=== PATIENT | female | born 1955 | race Caucasian/White ===

== ENCOUNTER → 2018-01-06 09:22 | Outpatient (CLI) | payer MEDICAID, SELFPAY ==
[2018-01-07 09:19] LABS: Vitamin B12 611 pg/mL (232-1245)
== END ==
PROVIDERS: PCP Internal Medicine Adolescent Medicine; Visit Provider Nurse Practitioner Family
DX: R20.2 Paresthesia of skin (principal)
CPT/HCPCS: 36415; 82607; 86592

== ENCOUNTER → 2018-01-07 12:25 | Outpatient (CLI) | payer MEDICAID, SELFPAY ==
--- NOTE | 2018-01-07 | CA_ITS ---
PROCEDURE: 2-D M-mode and color Doppler study INDICATIONS FOR THE TEST: Chest pain COPD Heart Murmur Tobacco Smoking Palpitations Fatigue Syncope Edemax HypertensionxDiabetes Mellitus Rheumatic Fever SOBxDOE Obesity Hyperlipidemia Family History HD Additional History PATIENT INFORMATION HEIGHT: 5'7'' WEIGHT: 204 GENDER: Female B/P: 177/84 2-D/M-MODE INTERPRETATION: 2-D MEASUREMENTS OBSERVED VALUES IN CMS Right Ventricular Dimension (RVDd) 2.1 Interventricular Septum (Thickness)(IVsd) 0.9 Left Ventricular Internal Dimensions(LVIDd) 3.8 Left Ventricular Posterior Wall (Thickness)(LVPWd) 1.0 Aortic Root 2.6 Aortic Cusp Separation 1.5 Left Atrial Dimensions (LAD) 3.2 2D 1. Left atrium is qualitatively mildly enlarged, left ventricle is normal size, left ventricle wall thickness is upper limit of the normal, there is preserved left ventricular systolic function, visually estimated ejection fraction 55% with no obvious regional wall motion abnormality. 2. The right atrium and right ventricle are qualitatively mildly enlarged with normal contractility. 3. The aortic valve is minimally thickened and fibrosed. 4. The mitral and tricuspid valve are grossly normal. 5. The pulmonic valve is poorly visualized. 6. No significant pericardial effusion noted. DOPPLER INTERROGATION: Doppler interrogation of the aortic, mitral and tricuspid valvular presence of mild mitral and tricuspid regurgitation, calculated right ventricular systolic pressure is 41 mmHg consistent with moderate pulmonary hypertension, grade 1 diastolic dysfunction seen with tissue Doppler evidence of raised left atrial pressure. CONCLUSION: 1. Mild biatrial enlargement, normal left ventricular size, visually estimated ejection fraction 55% with no obvious regional wall motion abnormality, grade 1 diastolic dysfunction seen with tissue Doppler evidence of raised left atrial pressure. 2. Mildly enlarged right ventricle with normal contractility. 3. Mild mitral and tricuspid regurgitation, calculated right ventricular systolic pressure is 41 mmHg consistent with mild pulmonary hypertension. 4. No significant pericardial effusion noted.
--- NOTE | 2018-01-07 | CI_ITS ---
Cerebrovascular Exam IMPRESSIONS 1. The bilateral internal carotid arteries reveal no evidence of plaque or stenosis. 2. The bilateral common and external carotid arteries reveal no significant stenosis. 3. The bilateral vertebral arteries are patent with normal antegrade flow. 4. The bilateral subclavian arteries reveal no evidence of significant stenosis. Carotid duplex study. Complete study and Doppler flow study including spectral analysis, color and leach scale imaging. Height: Height: 170.2cm. Height: 67in. Weight: Weight: 92.5kg. Weight: 203.6lb. Body mass index: BMI: 32kg/m^2. Body surface area: BSA: 2.12m^2. Location: Vascular laboratory. Patient status: Outpatient. Findings: Right internal carotid: Calcific plaque. Left internal carotid: Calcific plaque. Tables: Arterial flow: + +--------+--------+ Location V sys V ed + +--------+--------+ Right CCA - proximal 66cm/s 17.3cm/s + +--------+--------+ Right CCA - distal 53.5cm/s 14.9cm/s + +--------+--------+ Right ECA 61.8cm/s 8.8cm/s + +--------+--------+ Right ICA - proximal 49.6cm/s 18.2cm/s + +--------+--------+ Right ICA - mid 89.9cm/s 27.6cm/s + +--------+--------+ Right ICA - distal 93.7cm/s 24.3cm/s + +--------+--------+ Right vertebral 66.2cm/s 22.1cm/s + +--------+--------+ Left CCA - proximal 80.5cm/s 18.9cm/s + +--------+--------+ Left CCA - distal 64.7cm/s 12.6cm/s + +--------+--------+ Left ECA 74.2cm/s 6.3cm/s + +--------+--------+ Left ICA - proximal 53.3cm/s 17.5cm/s + +--------+--------+ Left ICA - mid 86.9cm/s 32.9cm/s + +--------+--------+ Left ICA - distal 97.2cm/s 30cm/s + +--------+--------+ Left vertebral 34.6cm/s 9.4cm/s + +--------+--------+ Velocity ratios: + + + + + + Right, V sys Right, V ed Left, V sys Left, V ed + + + + + + Max ICA/dist CCA 1.75 1.85 1.5 2.61 + + + + + + (Report amended ) Electronically signed by: Shahid Goldman [id number]
== END ==
PROVIDERS: Family Provider Internal Medicine Adolescent Medicine; PCP Internal Medicine Adolescent Medicine; Visit Provider Internal Medicine Adolescent Medicine
DX: R55 Syncope and collapse (principal); R60.9 Edema, unspecified
CPT/HCPCS: 93306; 93880

== ENCOUNTER → 2018-01-13 07:27 | Outpatient (CLI) | payer MEDICAID, SELFPAY ==
[2018-01-14 20:02] LABS: Treponema pallidum Ab (FTA-ABS Reactive (Non Reactive)
== END ==
PROVIDERS: PCP Internal Medicine Adolescent Medicine; Visit Provider Nurse Practitioner Family
DX: A53.0 Latent syphilis, unspecified as early or late (principal)
CPT/HCPCS: 36415; 86780

== ENCOUNTER 2018-01-13 09:00 | Outpatient (RCR) | payer MEDICAID, SELFPAY ==
--- NOTE | 2017-12-02 13:57 | HMH.PTOPWND ---
Rehab Outpt Wound Evaluation Rehab OP Wound Evaluation Start: 12/02/17 13:50 Freq: Status: Active Protocol: Document 12/02/17 13:50 PHOKRISTINE (Rec: 12/02/17 13:56 PHORNE [id number]) Electronically Signed By Mick Oakes, PT 12/02/17 13:50 Subjective/History History History Pt is 62 yowf who presents with 3-4 mo hx of lia LE edema with insidious onset of symptoms. Pt is a poor historian, but she reports not having these symptoms previously. She c/o pain throughout lia lower legs and feelings of tingling/numbness intermittently. PMH of HTN and possibly Hypothyroid. She is unsure of the rest of her medical hx, but has had 2 C- sections, possible CCY, and possible cancer removal of unknown type. Lymphedema Eval Classification of Lymphedema Secondary Lymphedema Yes: CVI Stemmer's sign Stemmer's Sign no Stage of Lymphedema Lymphedema stages Stage I (Pitting edema, reduces w/ elevation, no fibrosis) Skin Changes Discoloration of Skin Yes Other Changes Yes: Telangiectasis Pain Scale Pain Scale (0-10) 7 Affected Extremities Areas Affected by Lymphedema/Edema Right Lower Extremity Left Lower Extremity Manual Lymphatic Drainage Treatment Area MLD Treatment Area Right Lower Extremity Left Lower Extremity Wound Problems/Impairments Impairments Problems/Impairmments Palpation Tenderness Increased Edema Lymphedema Present Subjective C/O Pain Impaired Self Care/Self Management Prognosis Rehab Potential Good Clinical Impression Consistent with Diagnosis Yes Short Term Goals Number of Weeks 4 Decreased Palpation Tenderness Yes: to min Decrease Subjective C/O Pain Yes: 5/10 Patient to Understand Lymphedema Yes Treatment and Exercises Decrease Girth Measurments by (cm) Yes: by 5 cm Outreach Associate Goals Number of Weeks 8 Decreased Palpation Tenderness Yes: to none Decrease Subjective C/O Pain Yes: 3/10 Patient to be Ind w/ HEP Yes Patient to Adhere Lymphedema Precautions Yes Decrease Girth Measurments by (cm)
== END 2018-01-13 09:01 | disposition home or self-care (01) ==
LOC: PT 09:00
PROVIDERS: Family Provider Internal Medicine Adolescent Medicine; PCP Internal Medicine Adolescent Medicine; Visit Provider Internal Medicine Adolescent Medicine
DX: R60.9 Edema, unspecified (principal); I89.0 Lymphedema, not elsewhere classified
CPT/HCPCS: 97140; 97162; 97760

== ENCOUNTER → 2018-09-27 09:58 | Outpatient (CLI) | payer MEDICAID, SELFPAY ==
[2018-09-27 14:08] LABS: Alanine Aminotransferase 31 U/L (12-78); Albumin Level 3.7 gm/dL (3.4-5.0); Albumin/Globulin Ratio 1.1 (1.1-1.8); Alkaline Phosphatase 96 U/L (46-116); Anion Gap 12.7 mEq/L (5-15); Aspartate Amino Transferase 18 U/L (15-37); Bilirubin,Total 0.9 mg/dL (0.2-1.0); Blood Urea Nitrogen 12 mg/dL (7-18); Calcium 8.6 mg/dL (8.5-10.1); Carbon Dioxide 30 mmol/L (21.0-32.0); Chloride 102 mmol/L (98-107); Creatinine,Serum 0.78 mg/dL (0.55-1.02); Estimated Glomerular Filt Rate 75 ml/min (>60); GFR (African American) 91 ML/MIN (>60); Globulin 3.5 gm/dl (1.3-3.2); Glucose 108 mg/dL (74-106); Potassium 3.7 mmoL/L (3.5-5.1); Sodium 141 mmol/L (136-145); Total Protein,Serum 7.2 gm/dL (6.4-8.2)
[2018-09-29 06:16] LABS: Treponema pallidum Ab (FTA-ABS Reactive (Non Reactive)
== END ==
PROVIDERS: PCP Internal Medicine Adolescent Medicine; Visit Provider Internal Medicine Adolescent Medicine
DX: A53.9 Syphilis, unspecified (principal); I10 Essential (primary) hypertension
CPT/HCPCS: 36415; 80053; 86592; 86780

== ENCOUNTER → 2019-03-23 07:19 | Outpatient (CLI) | payer OTHER, SELFPAY ==
[2019-03-23 15:06] LABS: Alanine Aminotransferase 22 U/L (12-78); Albumin Level 3.4 gm/dL (3.4-5.0); Alkaline Phosphatase 101 U/L (46-116); Anion Gap 11.4 mEq/L (5-15); Aspartate Amino Transferase 20 U/L (15-37); Bilirubin,Total 0.9 mg/dL (0.2-1.0); Blood Urea Nitrogen 9 mg/dL (7-18); Calcium 8.9 mg/dL (8.5-10.1); Carbon Dioxide 32 mmol/L (21.0-32.0); Chloride 103 mmol/L (98-107); Chol/HDL Ratio 2.6 (1-3.5); Cholesterol 155 mg/dL (140-200); Creatinine,Serum 0.73 mg/dL (0.55-1.02); Estimated Glomerular Filt Rate 81 ml/min (>60); GFR (African American) 98 ML/MIN (>60); Globulin 3.3 gm/dl (1.3-3.2); Glucose 110 mg/dL (74-106); HDL Cholesterol 59 mg/dL (29-89); LDL Cholesterol 85 mg/dL (0-130); Potassium 3.4 mmoL/L (3.5-5.1); Sodium 143 mmol/L (136-145); Thyroid Stimulating Hormone 3.46 uIU/ml (0.358-3.740); Total Protein,Serum 6.7 gm/dL (6.4-8.2); Triglycerides 54 mg/dL (30-200); VLDL Cholesterol 11 mg/dL (0-40)
== END ==
PROVIDERS: PCP Internal Medicine Adolescent Medicine; Visit Provider Internal Medicine Adolescent Medicine
DX: E78.2 Mixed hyperlipidemia (principal); E03.9 Hypothyroidism, unspecified; I10 Essential (primary) hypertension; A53.0 Latent syphilis, unspecified as early or late
CPT/HCPCS: 36415; 80053; 80061; 84443; 86592

== ENCOUNTER 2019-10-29 08:42 | Emergency (ER) | payer OTHER, SELFPAY ==
[2019-10-29 08:42] VITALS: BP 164/85; PULSE 59; RESP 20; TEMP 36.8; O2SAT 95; BMI 33.5
--- NOTE | 2019-10-29 10:13 | HMH.EDEXTP ---
ED Disposition Clinical Impression: Cellulitis Disposition: Home, Self-Care Condition on Discharge: Good Instructions: Cellulitis Prescriptions: clindamycin HCL [Clindamycin HCl 300mg Cap] 300 mg PO Q6 10 Days #40 cap Transmission Status: Sent to [facility] Referrals: Jer Martinez MD [Primary Care Provider] - - Critical Care Critical Care Time: No Attestation: On 10/29/19, the high probability of a clinically significant, sudden or life threatening deterioration of the following system(s) required my full and direct attention, intervention and personal management. The time I documented below is in addition to time spent performing reported procedures but includes the following listed in this critical care notation. Medical Decision Making - Medical Records Medical records reviewed: Yes: I reviewed the patient's medical records. - Scooter Inquiry Pt receiving controlled substance: No Vital Signs: 10/29/19 08:42 Temperature 98.2 F Temperature Source Oral Pulse Rate [Right Radial] 59 L Respiratory Rate 20 Blood Pressure [Right Arm] 164/85 H Blood Pressure Mean [Right Arm] 111 Blood Pressure Source [Right Arm] Automatic Cuff Blood Pressure Position [Right Arm] Sitting 02 Sat by Pulse Oximetry 95 Oxygen Delivery Method Room Air Medical Decision Narrative: I did talk to the patient in depth about wearing compression stockings but she absolutely refused. Extremity Problem HPI - General Chief complaint: Extremity Injury, Lower Stated complaint: legs swollen and leaking Time Seen by Provider: 10/29/19 10:14 Mode of Arrival: Ambulatory Source of Information: Patient Limitations: No Limitations Description of Symptoms (Recalled from ER Triage Doc. by RN): Pt walked into ED c/o of R leg leaking, since Dr. Hopkins took off right toenail. Pt c/o they are edematous, although non pitting. Denies soa, cough chest pain or any pain. Pt states she only sees Dr. Martinez when she has. - History of Present Illness HPI Narrative: 64-year-old female presents the ED with bilateral leg swelling and also an area on the leg that is presently weeping mild erythema around the lesion on her right lower extremity however looks like early onset cellulitis patient denies any recent fever shakes or chills. Patient denies any nausea vomiting diarrhea. Patient denies any other acute symptoms. - Related Data Home Medications Medication Instructions Recorded Confirmed Furosemide [Furosemide 40MG tAB] 1 tab PO DAILY 12/28/17 08/03/19 Potassium Chloride [Micro-K 10mEq 10 meq PO DAILY 12/28/17 08/03/19 cap] atenoloL [Atenolol 50mg Tab] 1 tab PO BID 12/28/17 08/03/19 atorvastatin 40 mg tablet 40 mg PO DAILY 90 Days tab 01/21/18 08/03/19 Naproxen 500 mg PO BID 05/16/18 08/03/19 raNITIdine HCL [Ranitidine HCl] 150 mg PO BID 05/16/18 08/03/19 hydrochlorothiazide 12.5 mg capsule 12.5 mg PO DAILY 03/31/19 08/03/19 famotidine 20 mg tablet 20 mg PO QHS tab 06/08/19 08/03/19 losartan 100 mg tablet 100 mg PO tab 06/08/19 08/03/19 ranitidine HCl 300 mg tablet 300 mg PO DAILY tab 06/08/19 08/03/19 levothyroxine 75 mcg tablet 75 mcg PO tab 07/06/19 08/03/19 Previous Rx's Medication Instructions Recorded Bacitracin 1 applicatio TOPICAL TID 10 Days 01/16/19 #1 tube Clotrimazole/Betamethasone Dip 1 applicatio TP BID 30 Days #1 tube 03/07/19 [Lotrisone Cream] clindamycin HCL [Clindamycin HCl 300 mg PO Q6 10 Days #40 cap 10/29/19 300mg Cap] Allergies Allergy/AdvReac Type Severity Reaction Status Date / Time Penicillins Allergy Unknown I-HIVES Verified 08/03/19 08:08 Influenza Virus Vaccines Allergy swelling, Verified 08/03/19 08:08 rash [facility] History - Hepatitis A Screen Drug use history?: No High risk sexual behaviors?: No History of sexually transmitted infection?: No Currently employed?: No Childcare worker?: No Do you have indoor plumbing?: Yes Do you have electricity?:
[2019-10-29 10:25] VITALS: BP 135/75; PULSE 59; RESP 16; TEMP 36.6; O2SAT 98
== END 2019-10-29 10:27 | disposition home or self-care (01) ==
PROVIDERS: Emergency Provider Family Medicine; PCP Internal Medicine Adolescent Medicine
DX: L03.116 Cellulitis of left lower limb (principal); I10 Essential (primary) hypertension; E78.5 Hyperlipidemia, unspecified; E03.9 Hypothyroidism, unspecified; Z88.0 Allergy status to penicillin; Z88.7 Allergy status to serum and vaccine; Z90.79 Acquired absence of other genital organ(s); Z90.49 Acquired absence of other specified parts of digestive tract
CPT/HCPCS: 99281

== ENCOUNTER → 2020-01-10 12:43 | Outpatient (CLI) | payer OTHER, SELFPAY ==
--- NOTE | 2020-01-10 12:52 | XR_ITS ---
PROCEDURE: XR SHOULDER RT MIN 2V CLINICAL INDICATION: RT SHOULDER PAIN COMPARISON: No exams were available for comparison FINDINGS: No fracture or dislocation. No lytic or blastic change. There is normal mineralization. The joint spaces are well-preserved. No significant degenerative/arthritic changes. No erosive changes evident. Other findings:None. IMPRESSION: No acute findings. Dictated by: Shahid Goldman MD 01/10/2020 13:38 Shahid Goldman MD in [place] 01/10/2020 13:38
--- NOTE | 2020-01-10 12:52 | XR_ITS ---
PROCEDURE: XR THORACIC SPINE 3V CLINICAL INDICATION: THORACIC PAIN COMPARISON: No exams were available for comparison FINDINGS: There is mild thoracolumbar scoliosis convex right. Multilevel degenerative disc disease is present in the mid lower thoracic spine and at the thoracolumbar junction with multilevel small osteophytes noted . No acute fracture or dislocation. No lytic or blastic change. Other findings:None. IMPRESSION: Thoracic spondylosis with scoliosis Dictated by: Shahid Goldman MD 01/10/2020 13:38 Shahid Goldman MD in [facility] 01/10/2020 13:38
== END ==
PROVIDERS: PCP Internal Medicine Adolescent Medicine; Visit Provider Internal Medicine Adolescent Medicine
DX: M54.6 Pain in thoracic spine (principal); M25.511 Pain in right shoulder
CPT/HCPCS: 72072; 73030

== ENCOUNTER → 2020-01-24 10:03 | Outpatient (CLI) | payer OTHER, SELFPAY ==
[2020-01-24 14:32] LABS: Basophils # 0.1 K/mm3 (0-0.2); Basophils % 0.5 % (0.1-2.0); Eosinophils # 0.2 K/mm3 (0.0-0.4); Eosinophils % 1.7 % (0.1-12.0); Hematocrit 39.3 % (37.0-47.0); Hemoglobin 14.4 g/dL (12.2-16.2); Lymphocytes # 1.9 K/mm3 (0.7-4.5); Lymphocytes % 20.8 % (10-50); Mean Corpuscular HGB Conc 36.5 g/dL (31.8-35.4); Mean Corpuscular Hemoglobin 30.6 pg (27.0-31.2); Mean Corpuscular Volume 83.9 fl (81-99); Mean Platelet Volume 8.3 fl (7.4-10.4); Monocytes # 0.4 K/mm3 (0.1-1.0); Monocytes % 4.3 % (1.7-9.3); Neutrophils # 6.5 K/mm3 (1.8-7.8); Neutrophils % 72.6 % (37.0-80.0); Platelet Count 415 K/mm3 (142-424); Red Blood Count 4.69 M/mm3 (4.20-5.40); Red Cell Distribution Width 14.3 % (11.5-17.5); White Blood Count 8.9 K/mm3 (4.8-10.8)
[2020-01-24 14:35] LABS: Chloride 93 mmol/L (98-107)
[2020-01-24 14:36] LABS: Potassium 3.2 mmoL/L (3.5-5.1); Sodium 139 mmol/L (136-145)
[2020-01-24 14:38] LABS: Alanine Aminotransferase 22 U/L (12-78); Albumin Level 3.6 g/dl (3.5-5.0); Albumin/Globulin Ratio 1.1 (1.1-1.8); Alkaline Phosphatase 112 U/L (38-126); Anion Gap 10.2 mEq/L (5-15); Aspartate Amino Transferase 31 U/L (14-36); Bilirubin,Total 1.2 mg/dl (0.2-1.3); Blood Urea Nitrogen 18 mg/dl (7-17); Carbon Dioxide 39 mmol/L (22.0-30.0); Cholesterol 162 mg/dl (140-200); Estimated Glomerular Filt Rate 50 ml/min (>60); GFR (African American) 61 ML/MIN (>60); Globulin 3.3 g/dL (1.3-3.2); Total Protein,Serum 6.9 g/dl (6.3-8.2); Triglycerides 115 mg/dl (30-150); VLDL Cholesterol 23 mg/dL (0-40)
[2020-01-24 14:39] LABS: Calcium 9.5 mg/dl (8.4-10.2); Chol/HDL Ratio 3.8 (1-3.5); Glucose 138 mg/dl (74-100); HDL Cholesterol 43 mg/dl (40-60)
[2020-01-24 14:50] LABS: Direct LDL Cholesterol 97.29 mg/dL (100-129)
[2020-01-24 15:09] LABS: Thyroid Stimulating Hormone 3.09 uIU/mL (0.465-4.68)
[2020-01-24 15:57] LABS: 25-OH Vitamin D, Total 25.8 ng/mL (30-100)
== END ==
PROVIDERS: Visit Provider Internal Medicine Adolescent Medicine
DX: E78.2 Mixed hyperlipidemia (principal); E55.9 Vitamin D deficiency, unspecified; E03.9 Hypothyroidism, unspecified
CPT/HCPCS: 36415; 80053; 80061; 82306; 84443; 85025

== ENCOUNTER 2020-02-08 08:00 | Outpatient (RCR) | payer OTHER, SELFPAY ==
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
== END 2020-02-08 10:20 | disposition home or self-care (01) ==
LOC: PT.CARL 08:00
PROVIDERS: PCP Internal Medicine Adolescent Medicine; Visit Provider Internal Medicine Adolescent Medicine
DX: M25.511 Pain in right shoulder (principal)
CPT/HCPCS: 97010; 97014; 97110; 97163; G0283

== ENCOUNTER 2020-06-30 10:25 | Emergency (ER) | payer OTHER, SELFPAY ==
[2020-06-30 10:25] VITALS: BP 134/86; PULSE 56; RESP 21; TEMP 36.6; O2SAT 95; BMI 34.2
--- NOTE | 2020-06-30 10:48 | HMH.EDUTC ---
[facility] [place] Disposition Clinical Impression: Yeast dermatitis Disposition: Home, Self-Care Condition on Discharge: Good Instructions: DI for Christiane Diaper Rash, Yeast Infection-Skin, Nystatin Topical Additional Instructions: Make sure to wash area Keep the skin clean. Ask your healthcare provider if you should wash with mild soap and water. Do not use soap that contains alcohol. Alcohol can dry and irritate the skin and make symptoms worse Keep the skin dry. Pat the area dry with a towel. Do not rub, because this may irritate the skin. If you have a skin yeast infection between skin folds, lift the top part gently and hold it while you dry between your skin folds.Dry your skin if you are sweating from exercise or exposure to heat. Use a clean towel each time to prevent spreading or continuing the infection. Keep the skin protected.. Check your skin each day to make sure you do not have new or worsening problems. You may need to have someone check the skin if you cannot see the area easily. Using a cotton pillow case between the skin folds from your abdomen to groin area will help to keep skin from touching skin and help with healing Use powder as prescribed Follow up with your Family Doctor as scheduled Return if needed Straight to ER if any life threatening symptoms Prescriptions: Fluconazole [Diflucan 150mg tab] 150 mg PO ONCE #1 tab Transmission Status: Sent to [facility] Nystatin [Nystatin Topical Powder 30GM*] 1 applicatio TP TID #1 bot Transmission Status: Sent to [facility] Referrals: Jer Martinez MD [Primary Care Provider] - As needed Time of Disposition: 11:06 Medical Decision Making - Scooter Inquiry Pt receiving controlled substance: No Scooter was queried for this patient: No Vital Signs: 06/30/20 10:25 06/30/20 11:03 Temperature 97.8 F 97.8 F Temperature Source Oral Pulse Rate 56 L Pulse Rate [Left Brachial] 56 L Respiratory Rate 21 21 Blood Pressure 134/86 Blood Pressure [Left Arm] 134/86 Blood Pressure Mean [Left Arm] 102 Blood Pressure Source [Left Arm] Automatic Cuff Blood Pressure Position [Left Arm] Sitting 02 Sat by Pulse Oximetry 95 Oxygen Delivery Method Room Air Medical Decision Narrative: Patient educated to clean area well with mild soap and water apply powder and placement of pillow case between skin folds may help with sweating and healing of rash Patient verbalized understanding [facility] [place] HPI - General Stated complaint: broke out on lower abd Time Seen by Provider: 06/30/20 10:48 Mode of Arrival: Ambulatory Source of Information: Patient Limitations: No Limitations Description of Symptoms (Recalled from Triage Doc. by RN): PATIENT C/O RASH TO BILATERAL GROIN, LOWER ABDOMINAL FOLD AND GLUTEAL FOLD X APPROX 1 MONTH HEENT Symptoms (Recalled from RN notes): No Resp Symptoms (Recalled from RN notes): No Skin Symptoms (Recalled from RN notes): Yes MS Symptoms (Recalled from RN notes): No Functional Status (Recalled from RN notes): WNL - History of Present Illness Provider Complaint: Patient state that she has been having red itchy rash on her lower abdomen between skin folds and in groin area like she has had before with yeast States that she is also having rash between her buttcheeks that is itchy and burning and red like she has in her groin area States that she has had this before and got some medication and it cleared up States that it has continued to get worse over the last month - Related Data Home Medications Medication Instructions Recorded Confirmed Furosemide [Furosemide 40MG tAB*] 1 tab PO DAILY 12/28/17 05/09/20 Potassium Chloride [Micro-K 10mEq 10 meq PO DAILY 12/28/17 05/09/20 cap] atenoloL [Atenolol 50mg Tab] 1 tab PO BID 12/28/17 05/09/20 atorvastatin 40 mg tablet 40 mg PO DAILY 90 Days tab 01/21/18 05/09/20 Naproxen 500 mg PO BID 05/16/18 05/09/20 hydrochlorothiazide 12.5 mg capsule 12.5 mg PO DAILY 03/31/19 05/09/20 famotidine 2
[2020-06-30 11:03] VITALS: BP 134/86; PULSE 56; RESP 21; TEMP 36.6; O2SAT 95
== END 2020-06-30 11:10 | disposition home or self-care (01) ==
PROVIDERS: Emergency Provider Nurse Practitioner; PCP Internal Medicine Adolescent Medicine
DX: B37.2 Candidiasis of skin and nail (principal); E78.5 Hyperlipidemia, unspecified; I10 Essential (primary) hypertension; E03.9 Hypothyroidism, unspecified; Z88.0 Allergy status to penicillin; Z88.7 Allergy status to serum and vaccine; Z90.79 Acquired absence of other genital organ(s); Z90.49 Acquired absence of other specified parts of digestive tract; Z79.899 Other long term (current) drug therapy
CPT/HCPCS: 99202; G0463

== ENCOUNTER → 2020-07-11 07:45 | Outpatient (CLI) | payer OTHER, SELFPAY ==
[2020-07-11 13:56] LABS: Chloride 95 mmol/L (98-107); Sodium 140 mmol/L (136-145)
[2020-07-11 13:58] LABS: Blood Urea Nitrogen 29 mg/dl (7-17); Estimated Glomerular Filt Rate 45 ml/min (>60); GFR (African American) 55 ML/MIN (>60); Potassium 2.9 mmoL/L (3.5-5.1)
[2020-07-11 13:59] LABS: Alanine Aminotransferase 20 U/L (12-78); Albumin Level 3.8 g/dl (3.5-5.0); Albumin/Globulin Ratio 1.1 (1.1-1.8); Alkaline Phosphatase 102 U/L (38-126); Anion Gap 8.9 mEq/L (5-15); Aspartate Amino Transferase 29 U/L (14-36); Calcium 9.4 mg/dl (8.4-10.2); Carbon Dioxide 39 mmol/L (22.0-30.0); Chol/HDL Ratio 4.1 (1-3.5); Cholesterol 178 mg/dl (140-200); Globulin 3.4 g/dL (1.3-3.2); Glucose 138 mg/dl (74-100); HDL Cholesterol 43 mg/dl (40-60); Total Protein,Serum 7.2 g/dl (6.3-8.2); Triglycerides 121 mg/dl (30-150); VLDL Cholesterol 24 mg/dL (0-40)
[2020-07-11 14:11] LABS: Direct LDL Cholesterol 100.85 mg/dL (100-129)
[2020-07-11 14:15] LABS: Basophils # 0.1 K/mm3 (0-0.2); Basophils % 0.9 % (0.1-2.0); Eosinophils # 0.2 K/mm3 (0.0-0.4); Eosinophils % 3.7 % (0.1-12.0); Hematocrit 39.1 % (37.0-47.0); Hemoglobin 13.5 g/dL (12.2-16.2); Lymphocytes # 1.6 K/mm3 (0.7-4.5); Lymphocytes % 23.9 % (10-50); Mean Corpuscular HGB Conc 34.6 g/dL (31.8-35.4); Mean Corpuscular Hemoglobin 28.9 pg (27.0-31.2); Mean Corpuscular Volume 83.8 fl (81-99); Mean Platelet Volume 8.9 fl (7.4-10.4); Monocytes # 0.3 K/mm3 (0.1-1.0); Monocytes % 4.9 % (1.7-9.3); Neutrophils # 4.4 K/mm3 (1.8-7.8); Neutrophils % 66.5 % (37.0-80.0); Platelet Count 328 K/mm3 (142-424); Red Blood Count 4.67 M/mm3 (4.20-5.40); Red Cell Distribution Width 14.3 % (11.5-17.5); White Blood Count 6.5 K/mm3 (4.8-10.8)
[2020-07-11 14:17] LABS: 25-OH Vitamin D, Total 22.4 ng/mL (30-100)
== END ==
PROVIDERS: Visit Provider Internal Medicine Adolescent Medicine
DX: E78.2 Mixed hyperlipidemia (principal); E55.9 Vitamin D deficiency, unspecified
CPT/HCPCS: 36415; 80053; 80061; 82306; 85025

== ENCOUNTER → 2020-07-24 12:00 | Outpatient (CLI) | payer OTHER, SELFPAY ==
[2020-07-24 14:51] LABS: Chloride 103 mmol/L (98-107); Potassium 4.4 mmoL/L (3.5-5.1); Sodium 140 mmol/L (136-145)
[2020-07-24 14:54] LABS: Anion Gap 10.4 mEq/L (5-15); Blood Urea Nitrogen 27 mg/dl (7-17); Calcium 9.6 mg/dl (8.4-10.2); Carbon Dioxide 31 mmol/L (22.0-30.0); Estimated Glomerular Filt Rate 56 ml/min (>60); GFR (African American) 68 ML/MIN (>60); Glucose 113 mg/dl (74-100)
== END ==
PROVIDERS: Visit Provider Internal Medicine Adolescent Medicine
DX: E87.6 Hypokalemia (principal)
CPT/HCPCS: 36415; 80048

== ENCOUNTER → 2020-10-29 06:51 | Outpatient (CLI) | payer OTHER, SELFPAY ==
[2020-10-29 13:57] LABS: Chloride 98 mmol/L (98-107); Potassium 3.8 mmoL/L (3.5-5.1); Sodium 139 mmol/L (136-145)
[2020-10-29 13:59] LABS: Blood Urea Nitrogen 20 mg/dl (7-17); Estimated Glomerular Filt Rate 50 ml/min (>60); GFR (African American) 61 ML/MIN (>60)
[2020-10-29 14:00] LABS: Alanine Aminotransferase 15 U/L (12-78); Albumin Level 3.6 g/dl (3.5-5.0); Albumin/Globulin Ratio 1.1 (1.1-1.8); Alkaline Phosphatase 97 U/L (38-126); Anion Gap 10.8 mEq/L (5-15); Aspartate Amino Transferase 24 U/L (14-36); Bilirubin,Total 0.8 mg/dl (0.2-1.3); Calcium 8.9 mg/dl (8.4-10.2); Carbon Dioxide 34 mmol/L (22.0-30.0); Globulin 3.2 g/dL (1.3-3.2); Glucose 139 mg/dl (74-100); Magnesium 1.7 mg/dl (1.6-2.3); Total Protein,Serum 6.8 g/dl (6.3-8.2)
[2020-10-29 14:05] LABS: Basophils % 0.4 % (0.1-2.0); Eosinophils # 0.2 K/mm3 (0.0-0.4); Eosinophils % 3.3 % (0.1-12.0); Hematocrit 37.4 % (37.0-47.0); Hemoglobin 13.2 g/dL (12.2-16.2); Lymphocytes # 1.7 K/mm3 (0.7-4.5); Lymphocytes % 23.5 % (10-50); Mean Corpuscular HGB Conc 35.3 g/dL (31.8-35.4); Mean Corpuscular Hemoglobin 29.3 pg (27.0-31.2); Mean Corpuscular Volume 82.9 fl (81-99); Mean Platelet Volume 8.7 fl (7.4-10.4); Monocytes # 0.4 K/mm3 (0.1-1.0); Monocytes % 5.2 % (1.7-9.3); Neutrophils # 4.8 K/mm3 (1.8-7.8); Neutrophils % 67.5 % (37.0-80.0); Platelet Count 297 K/mm3 (142-424); Red Blood Count 4.51 M/mm3 (4.20-5.40); Red Cell Distribution Width 13.7 % (11.5-17.5); White Blood Count 7.1 K/mm3 (4.8-10.8)
== END ==
PROVIDERS: Visit Provider Internal Medicine Adolescent Medicine
DX: I89.0 Lymphedema, not elsewhere classified (principal)
CPT/HCPCS: 36415; 80053; 83735; 85025

== ENCOUNTER 2020-12-03 13:00 | Outpatient (RCR) | payer OTHER, SELFPAY ==
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
--- NOTE | 2020-10-10 13:54 | HMH.RHREAS ---
Rehab Reassessment Rehab OP Re-assessment Start: 10/10/20 13:50 Freq: Status: Active Protocol: Document 10/10/20 13:50 ALVIN (Rec: 10/10/20 13:54 ALVIN [id number]) Electronically Signed By Mick Oakes, PT 10/10/20 13:50 Rehab Re-assessment Subjective Subjective Pt reports her legs feels better now, now new blisters, R bain remains tender. Objective Objective Notes Circumferential measurements: R LE total is 307.2 cm. L LE is 303.8 cm. 1/4 tenderness to palpation on the R lower leg. Assessment Progress Assessment Progressing as Expected Assessment Notes Much improved skin integrity, no current open sores or blisters. Some decrease in edema noted, but remain 2+ pitting to B LE. Patient goals met ST,2,3 Goals Not Met LT,2,3,4 Revised Goals none Plan Plan Continue per initial POC Frequency of Therapy 2 x/wk Duration of therapy 8 wks Time and Billing Re-Eval Time 15 Re-Eval Billing Units 1 PHYSICIAN CERTIFICATION: I certify the specified therapy services for Clau Crowder are required, authorized, and reviewed every 30 days.
--- NOTE | 2020-11-14 08:34 | HMH.RHREAS ---
Rehab Reassessment Rehab OP Re-assessment Start: 10/10/20 13:50 Freq: Status: Active Protocol: Document 11/14/20 08:28 ALVIN (Rec: 11/14/20 08:34 ALVIN [id number]) Electronically Signed By Mick Oakes, PT 11/14/20 08:28 Rehab Re-assessment Subjective Subjective Pt reports, My leg was fixin to bust this morning, its not going to bust is it? Objective Objective Notes Fibrotic edema remains in R lower leg with increased 2+ pitting edema noted in the R foot. Assessment Progress Assessment Progressing as Expected Assessment Notes Pt has shown significant improvement in her edema overall, but has increased pitting and pain this date. Pt has difficulty following home treatment program at best and has limited assistance. Patient goals met ST,2,3 Goals Not Met LT,2,3,4 Revised Goals none Plan Plan Continue per initial POC Frequency of Therapy 2 x/wk Duration of therapy 8 wks Time and Billing Re-Eval Time 15 Re-Eval Billing Units 0 PHYSICIAN CERTIFICATION: I certify the specified therapy services for Clau Crowder are required, authorized, and reviewed every 30 days.
== END 2020-12-03 13:05 | disposition home or self-care (01) ==
LOC: PT 13:00
PROVIDERS: PCP Internal Medicine Adolescent Medicine; Visit Provider Internal Medicine Adolescent Medicine
DX: I89.0 Lymphedema, not elsewhere classified (principal); L03.115 Cellulitis of right lower limb
CPT/HCPCS: 97140; 97162; 97164; 97760

== ENCOUNTER 2021-01-13 16:23 | Emergency (ER) | payer OTHER, SELFPAY ==
[2021-01-13 16:25] VITALS: BP 112/54; PULSE 61; RESP 22; TEMP 36.6; O2SAT 93; BMI 35.0
--- NOTE | 2021-01-13 17:00 | ECG_ITS ---
APPROVED REPORT Exam: Resting ECG HR:58 bpm ECG Measurements Heart Rate 58 AXES GA 170 P 14 QRSd 84 QRS 0 QT 442 T 19 QTc 433 Conclusion Sinus bradycardia Minimal voltage criteria for LVH, may be normal variant Borderline ECG Electronically signed by : Jer Martinez MD 01/14/2021 20:39:52
--- NOTE | 2021-01-13 17:00 | XR_ITS ---
PROCEDURE INFORMATION: Exam: XR Chest Exam date and time: 01/13/2021 5:00 PM Age: 65 years old Clinical indication: Shortness of breath; Additional info: SOB, covid+ TECHNIQUE: Imaging protocol: XR of the chest. Views: 2 views. COMPARISON: CR CXR2V XR chest 2V 12/28/2017 10:26 AM FINDINGS: Lungs: There are multiple patchy areas of consolidation peripherally in the lungs consistent with active inflammation and infection. Pleural spaces: Unremarkable. No pleural effusion. No pneumothorax. Heart/Mediastinum: Unremarkable. No cardiomegaly. Bones/joints: Unremarkable. IMPRESSION: There are multiple patchy areas of consolidation peripherally in the lungs consistent with active inflammation and infection. Pulmonary nodules could be obscured currently.
[2021-01-13 17:14] LABS: Basophils % 0.3 % (0.1-2.0); Eosinophils % 0.4 % (0.1-12.0); Hematocrit 34.4 % (37.0-47.0); Hemoglobin 12.1 g/dL (12.2-16.2); Lymphocytes # 0.6 K/mm3 (0.7-4.5); Lymphocytes % 12.3 % (10-50); Mean Corpuscular HGB Conc 35.3 g/dL (31.8-35.4); Mean Corpuscular Hemoglobin 29.7 pg (27.0-31.2); Mean Corpuscular Volume 84.2 fl (81-99); Mean Platelet Volume 9.9 fl (7.4-10.4); Monocytes # 0.1 K/mm3 (0.1-1.0); Monocytes % 1.5 % (1.7-9.3); Neutrophils # 4.5 K/mm3 (1.8-7.8); Neutrophils % 85.4 % (37.0-80.0); Platelet Count 155 K/mm3 (142-424); Red Blood Count 4.08 M/mm3 (4.20-5.40); Red Cell Distribution Width 14.5 % (11.5-17.5); White Blood Count 5.2 K/mm3 (4.8-10.8)
[2021-01-13 17:20] LABS: MANUAL DIFFERENTIAL MANUAL DIFFERENTIAL (MANUAL DIFF)
[2021-01-13 17:22] LABS: Alanine Aminotransferase 23 U/L (12-78); Albumin Level 3.2 g/dl (3.5-5.0); Albumin/Globulin Ratio 0.9 (1.1-1.8); Alkaline Phosphatase 77 U/L (38-126); Anion Gap 14.3 mEq/L (5-15); Aspartate Amino Transferase 62 U/L (14-36); Bilirubin,Total 0.6 mg/dl (0.2-1.3); Blood Urea Nitrogen 34 mg/dl (7-17); Calcium 8.8 mg/dl (8.4-10.2); Carbon Dioxide 28 mmol/L (22.0-30.0); Chloride 97 mmol/L (98-107); Creatinine Clearance Estimated 41 mL/min (50-200); Estimated Glomerular Filt Rate 22 ml/min (>60); GFR (African American) 27 ML/MIN (>60); Globulin 3.4 g/dL (1.3-3.2); Glucose 155 mg/dl (74-100); Potassium 3.3 mmoL/L (3.5-5.1); Sodium 136 mmol/L (136-145); Total Protein,Serum 6.6 g/dl (6.3-8.2)
[2021-01-13 17:29] LABS: Lymphocytes % 10 % (10-50); Monocytes % 1 % (2-9); Neutrophils % 89 % (42-76); Platelet Estimate Normal; RBC Morphology Normal; Total Cells Counted 100
[2021-01-13 19:12] VITALS: BP 98/50; PULSE 56; RESP 20; TEMP 36.8; O2SAT 95
--- NOTE | 2021-01-13 20:48 | HMH.EDGENADL ---
ED Disposition Clinical Impression: COVID-19 Disposition: Home, Self-Care Condition on Discharge: Fair Referrals: Jer Martinez MD [Primary Care Provider] - - Critical Care Critical Care Time: No Attestation: On 01/13/21, the high probability of a clinically significant, sudden or life threatening deterioration of the following system(s) required my full and direct attention, intervention and personal management. The time I documented below is in addition to time spent performing reported procedures but includes the following listed in this critical care notation. Medical Decision Making - Medical Records Medical records reviewed: Yes: I reviewed the patient's medical records. - Scooter Inquiry Pt receiving controlled substance: No Vital Signs: 01/13/21 16:25 01/13/21 19:12 Temperature 98 F 98.2 F Temperature Source Oral Oral Pulse Rate 56 L Pulse Rate [Right] 61 Respiratory Rate 22 20 Blood Pressure 98/50 L Blood Pressure [Right Arm] 112/54 L Blood Pressure Mean [Right Arm] 73 02 Sat by Pulse Oximetry 93 L Oxygen Delivery Method Room Air Room Air - Lab Data Lab Results 01/13/21 17:05: WBC 5.2, RBC 4.08 L, Hgb 12.1 L, Hct 34.4 L, MCV 84.2, MCH 29.7, MCHC 35.3, RDW 14.5, Plt Count 155, MPV 9.9, Neut % (Auto) 85.4 H, Lymph % (Auto) 12.3, [place] % (Auto) 1.5 L, Eos % (Auto) 0.4, Baso % (Auto) 0.3, Neut # (Auto) 4.5, Lymph # (Auto) 0.6 L, [place] # (Auto) 0.1, Eos # (Auto) 0.0, Baso # (Auto) 0.0, Total Counted 100, Neutrophils % (Manual) 89 H, Lymphocytes % (Manual) 10, Monocytes % (Manual) 1 L, Platelet Estimate Normal, RBC Morphology Normal 01/13/21 17:05: Sodium 136, Potassium 3.3 L, Chloride 97 L, Carbon Dioxide 28, Anion Gap 14.3, BUN 34 H, Creatinine 2.20 H, Estimated Creat Clear 41, Estimated GFR 22 L, Est GFR ( Amer) 27 L, Glucose 155 H, Calcium 8.8, Total Bilirubin 0.6, AST 62 H, ALT 23, Alkaline Phosphatase 77, Total Protein 6.6, Albumin 3.2 L, Globulin 3.4 H, Albumin/Globulin Ratio 0.9 L Result diagrams: 01/13/21 17:05 01/13/21 17:05 Orders (Tests/Meds): ORDERS Category Date Time Status 12-lead EKG Request [ECG Request by /Roberto] Stat Y 01/13/21 17:00 Ordered Medical Decision Narrative: Patient is 65-year-old female presenting to the emergency department with shortness of air. Patient was positive for Covid on 01 10. Patient saturating well on room air, 9495%. CBC, CMP, Chest x-ray, EKG, troponin were ordered patient had no significant abnormalities of laboratory analysis, but chest x-ray did show bilateral pulmonary exudate. Given patient's comorbidities, obesity did refer patient for monoclonal antibodies. Discussed with the patient who is agreeable to this treatment. She is given return precautions for increase shortness of breath and return to emergency department. General Adult HPI - General Chief complaint: Fever Stated complaint: coivid+ ,fever Time Seen by Provider: 01/13/21 17:00 Mode of Arrival: Ambulatory Source of Information: Patient Limitations: No Limitations Description of Symptoms (Recalled from ER Triage Doc. by RN): COVID+ ON 01/10, C/O DIARRHEA, FEVER, HEADACHE, DRY COUGH & WEAKNESS - History of Present Illness HPI narrative: 65 year-old female who is presenting to the emergency department with chief complaint of cough, fevers, shortness of breath. Patient also states that she has had 2-3 watery bowel movements each day. She does not know her temperature at home, but has chills and eats. She does have some chest pain with cough, but denies any other chest pain. Cough is nonproductive. She did not receive the Covid vaccination. She tested positive for Covid on 01/10. - Related Data Home Medications Medication Instructions Recorded Confirmed Furosemide [Furosemide 40MG tAB*] 1 tab PO DAILY 12/28/17 11/29/20 atenoloL [Atenolol 50mg Tab] 1 tab PO BID 12/28/17 11/29/20 atorvastatin 40 mg tablet 40 mg PO DAILY 90 Days tab 01/21/18 11/29/20
== END 2021-01-13 19:14 | disposition home or self-care (01) ==
PROVIDERS: Emergency Provider Emergency Medicine; PCP Internal Medicine Adolescent Medicine
DX: U07.1 COVID-19 (principal); I10 Essential (primary) hypertension; E78.5 Hyperlipidemia, unspecified; E03.9 Hypothyroidism, unspecified
CPT/HCPCS: 71046; 80053; 85007; 85025; 93005; 99283

== ENCOUNTER 2021-01-15 09:58 | Inpatient (IN) | payer OTHER, SELFPAY ==
[2021-01-15] VITALS (7 sets, daily range): BP systolic 108–131; BP diastolic 51–88; PULSE 66–102; RESP 18–24; TEMP 36.4–36.9; O2SAT 66–97; BMI 33.5; BMI 34.9
--- NOTE | 2021-01-15 10:06 | HMH.EDSOB ---
ED Disposition Clinical Impression: Pneumonia due to COVID-19 virus, Hypoxemia Renal failure, acute Qualifiers: Acute renal failure type: unspecified Qualified Code(s): N17.9 - Acute kidney failure, unspecified Disposition: Admitted as Observation Condition on Discharge: Serious - Critical Care Critical Care Time: No Attestation: On 01/15/21, the high probability of a clinically significant, sudden or life threatening deterioration of the following system(s) required my full and direct attention, intervention and personal management. The time I documented below is in addition to time spent performing reported procedures but includes the following listed in this critical care notation. Medical Decision Making - Medical Records Medical records reviewed: Yes: I reviewed the patient's medical records. - Scooter Inquiry Pt receiving controlled substance: No Vital Signs: 01/15/21 09:58 Temperature 97.5 F L Temperature Source Oral Pulse Rate [Right Radial] 102 H Respiratory Rate 18 Blood Pressure [Right Arm] 108/51 L Blood Pressure Mean [Right Arm] 70 Blood Pressure Source [Right Arm] Automatic Cuff Blood Pressure Position [Right Arm] Sitting 02 Sat by Pulse Oximetry 66 L Oxygen Delivery Method Room Air - Lab Data Lab Results 01/15/21 09:50: WBC 7.7 D, RBC 4.32, Hgb 12.4, Hct 37.1, MCV 85.7, MCH 28.8, MCHC 33.6, RDW 14.9, Plt Count 193, MPV 9.1, Neut % (Auto) 86.9 H, Lymph % (Auto) 10.0, [place] % (Auto) 2.6, Eos % (Auto) 0.2, Baso % (Auto) 0.3, Neut # (Auto) 6.7, Lymph # (Auto) 0.8, [place] # (Auto) 0.2, Eos # (Auto) 0.0, Baso # (Auto) 0.0 01/15/21 09:50: PT 10.9, INR 0.92, APTT 29.8 01/15/21 09:50: Sodium 137, Potassium 3.9, Chloride 100, Carbon Dioxide 24, Anion Gap 16.9 H, BUN 53 H D, Creatinine 4.70 H D, Estimated Creat Clear 19, Estimated GFR 9 L*, Est GFR ( Amer) 11 L* D, Glucose 236 H, Calcium 8.5, Total Bilirubin 0.8, AST 92 H D, ALT 27, Alkaline Phosphatase 89, Total Protein 6.6, Albumin 3.1 L, Globulin 3.5 H, Albumin/Globulin Ratio 0.9 L Result diagrams: 01/15/21 09:50 01/15/21 09:50 Orders (Tests/Meds): ED MEDICATIONS Discontinued Medications Generic Name Dose Route Start Last Admin Trade Name Yevgeniy PRN Reason Stop Dose Admin Dexamethasone Sodium Phosphate 8 mg 01/15/21 10:14 01/15/21 10:21 Dexamethasone 4mg/Ml 1ml Vial IV 01/15/21 10:15 8 mg ONCE ONE Administration ORDERS Category Date Time Status Complete Blood Count Auto Diff Stat Lab 01/15/21 09:50 Results Rapid PCR Covid and Flu A/B Stat Lab 01/15/21 09:55 Received - Radiology Data #1 Image(s): Chest Image Reviewed: Yes I reviewed the patient's radiology image Preliminary Findings: Abnormal (The infiltrates consistent with Covid 19 pneumonia) - Physician Consults Physician Consulted: Sergey Time: 12:01 Reason -: Admission Comment/Response: Dr. Rincon has agreed to admit the patient to his service. Resp/SOB HPI - General Chief Complaint: Shortness of Breath/Dyspnea Stated Complaint: covid Time Seen by Provider: 01/15/21 10:10 Mode of Arrival: Wheelchair Source of Information: Patient - History of Present Illness Patient presents to the emergency department for a routine Covid infusion that was scheduled for today. She was diagnosed with COVID-19 5 days ago. She complains of worsening shortness of breath and cough. In triage her oxygen saturations were 66% on room air. She was immediately placed on a nonrebreather. Her oxygen aminah to 99%. MD Complaint: shortness of breath - Related Data Home Medications Medication Instructions Recorded Confirmed Furosemide [Furosemide 40MG tAB*] 1 tab PO DAILY 12/28/17 11/29/20 atenoloL [Atenolol 50mg Tab] 1 tab PO BID 12/28/17 11/29/20 atorvastatin 40 mg tablet 40 mg PO DAILY 90 Days tab 01/21/18 11/29/20 Naproxen 500 mg PO BID 05/16/18 11/29/20 hydrochlorothiazide 12.5 mg capsule 12.5 mg PO DAILY 03/31/19 11/29/20 famotidine 20 mg tablet
--- NOTE | 2021-01-15 10:13 | XR_ITS ---
PROCEDURE: XR CHEST PORTABLE CLINICAL HISTORY: Dyspnea, COVID+ COMPARISON: CR CXR CHEST(2 VIEWS-NOT PORTABLE) from 02/16/2015 CR CXR2V XR chest 2V from 12/28/2017 CR XR CHEST 2V from 01/13/2021 FINDINGS: Mild cardiomegaly without failure. Patchy infiltrates in the right and left upper and lower lobes and appears somewhat worse. No effusion or pneumothorax. No acute bony abnormalities. IMPRESSION: Slight worsening bilateral pneumonia Dictated by: Shahid Goldman MD 01/15/2021 11:37 Shahid Goldman MD in OV 01/15/2021 11:37
[2021-01-15 10:30] LABS: Chloride 100 mmol/L (98-107); Potassium 3.9 mmoL/L (3.5-5.1); Sodium 137 mmol/L (136-145)
[2021-01-15 10:33] LABS: Alanine Aminotransferase 27 U/L (12-78); Albumin Level 3.1 g/dl (3.5-5.0); Albumin/Globulin Ratio 0.9 (1.1-1.8); Alkaline Phosphatase 89 U/L (38-126); Anion Gap 16.9 mEq/L (5-15); Aspartate Amino Transferase 92 U/L (14-36); Bilirubin,Total 0.8 mg/dl (0.2-1.3); Blood Urea Nitrogen 53 mg/dl (7-17); Calcium 8.5 mg/dl (8.4-10.2); Carbon Dioxide 24 mmol/L (22.0-30.0); Creatinine Clearance Estimated 19 mL/min (50-200); Estimated Glomerular Filt Rate 9 ml/min (>60); GFR (African American) 11 ML/MIN (>60); Globulin 3.5 g/dL (1.3-3.2); Glucose 236 mg/dl (74-100); Total Protein,Serum 6.6 g/dl (6.3-8.2)
[2021-01-15 10:39] LABS: Activated Partial Thrombo Time 29.8 seconds (22.8-30.6); Prothrombin Time 10.9 seconds (10.1-12.5)
[2021-01-15 10:41] LABS: INR 0.92 (0.9-1.1)
[2021-01-15 11:41] LABS: Influenza A, PCR Not Detected (NotDetected); Influenza B, PCR Not Detected (NotDetected)
[2021-01-15 11:45] LABS: Basophils % 0.3 % (0.1-2.0); Eosinophils % 0.2 % (0.1-12.0); Hematocrit 37.1 % (37.0-47.0); Hemoglobin 12.4 g/dL (12.2-16.2); Lymphocytes # 0.8 K/mm3 (0.7-4.5); Mean Corpuscular HGB Conc 33.6 g/dL (31.8-35.4); Mean Corpuscular Hemoglobin 28.8 pg (27.0-31.2); Mean Corpuscular Volume 85.7 fl (81-99); Mean Platelet Volume 9.1 fl (7.4-10.4); Monocytes # 0.2 K/mm3 (0.1-1.0); Monocytes % 2.6 % (1.7-9.3); Neutrophils # 6.7 K/mm3 (1.8-7.8); Neutrophils % 86.9 % (37.0-80.0); Platelet Count 193 K/mm3 (142-424); Red Blood Count 4.32 M/mm3 (4.20-5.40); Red Cell Distribution Width 14.9 % (11.5-17.5); White Blood Count 7.7 K/mm3 (4.8-10.8)
[2021-01-15 11:47] LABS: MANUAL DIFFERENTIAL MANUAL DIFFERENTIAL (MANUAL DIFF)
[2021-01-15 12:03] LABS: Lymphocytes % 5 % (10-50); Monocytes % 4 % (2-9); Neutrophils % 91 % (42-76); Total Cells Counted 100
[2021-01-15 12:04] LABS: Microcytosis 1+; Platelet Estimate Normal
--- NOTE | 2021-01-15 12:05 | PC.NURSE ---
Addendum entered by Archana Cook RN 01/15/21 12:20: PT HAS BEDSORE PRESENT ON ARRIVAL TO ED. Original Note: PT HAD BEDSORE PRESENT ON ARRIVAL TO ED.
[2021-01-15 12:16] LABS: Coronavirus 19, PCR Detected (NotDetected)
--- NOTE | 2021-01-15 13:24 | HMH.PHAVTE ---
[facility] Pharmacy VTE Monitoring - Patient Demographics Admission date: 01/15/21 Report Date: 01/15/21 Time: 13:25 Allergies/Adverse Reactions: Patient Allergies Penicillins Allergy (Unknown, Verified 11/29/20 11:05) I-HIVES Influenza Virus Vaccines Allergy (Verified 11/29/20 11:05) swelling, rash Height: 1.7 m Weight: 97.069 kg Patient Problems: Current Active Problems Pneumonia due to COVID-19 virus (Acute) Hypoxemia (Acute) Renal failure, acute (Acute) - VTE Risk Labs: VTE Related Lab Results Hgb 12.4 g/dL (12.2-16.2) 01/15/21 09:50 Hct 37.1 % (37.0-47.0) 01/15/21 09:50 Plt Count 193 K/mm3 (142-424) 01/15/21 09:50 PT 10.9 seconds (10.1-12.5) 01/15/21 09:50 INR 0.92 (0.9-1.1) 01/15/21 09:50 APTT 29.8 seconds (22.8-30.6) 01/15/21 09:50 BUN 53 mg/dl (7-17) H D 01/15/21 09:50 Creatinine 4.70 mg/dl (0.52-1.04) H D 01/15/21 09:50 Estimated Creat Clear 19 mL/min (50-200) 01/15/21 09:50 Clinical Trial Participant: No - Prophylaxis VTE Prophylaxis Ordered?: Yes Types of VTE Prophylaxis: TEDS Knee High
--- NOTE | 2021-01-15 14:47 | PC.NURSE ---
Pt arrived to the floor at this time.
[2021-01-15 17:16] LABS: Chloride 101 mmol/L (98-107)
[2021-01-15 17:17] LABS: Potassium 4.3 mmoL/L (3.5-5.1); Sodium 136 mmol/L (136-145)
[2021-01-15 17:20] LABS: Alanine Aminotransferase 27 U/L (12-78); Albumin Level 2.9 g/dl (3.5-5.0); Albumin/Globulin Ratio 0.9 (1.1-1.8); Alkaline Phosphatase 91 U/L (38-126); Anion Gap 16.3 mEq/L (5-15); Aspartate Amino Transferase 90 U/L (14-36); Bilirubin,Total 0.6 mg/dl (0.2-1.3); Blood Urea Nitrogen 55 mg/dl (7-17); Calcium 8.4 mg/dl (8.4-10.2); Carbon Dioxide 23 mmol/L (22.0-30.0); Creatinine Clearance Estimated 20 mL/min (50-200); Estimated Glomerular Filt Rate 10 ml/min (>60); GFR (African American) 12 ML/MIN (>60); Globulin 3.4 g/dL (1.3-3.2); Glucose 254 mg/dl (74-100); Total Protein,Serum 6.3 g/dl (6.3-8.2)
--- NOTE | 2021-01-15 18:50 | HMH.HP ---
*Admission Date: 01/15/21 *Chief complaint: shortness of breath *History of present illness: Ms. Crowder is a 65-year-old female who was diagnosed in our office last with COVID-19. Was having URI symptoms, cough, chills. Symptoms began a little over a week ago. She was scheduled for Covid monoclonal antibody infusion today. Upon arrival she complained of worsening shortness of breath, cough. In triage her oxygen was noted to be 66% on room air. Immediately placed on nonrebreather and further work-up initiated. Oxygen increased to mid 90s. Work-up in the ER with significant concerns on labs. White cell count surprisingly normal. Creatinine elevated from baseline of 1.2 to 4.7. Due to new oxygen requirement, renal failure, patient no longer met criteria for antibody infusion and medicine was consulted for admission. On assessment after arriving to the floor, patient is setting mid 90s on Vapotherm at 80% FiO2. Initiated on steroids, vitamins, maintenance fluids. Patient asking when she can go home. She is a fair historian but does not seem to have good insight from interview of her current condition and prognosis. She is unvaccinated and Covid vaccine subject is broached, she expresses concern and skepticism of vaccine. Denies nausea, chest pain, vomiting, diarrhea. Afebrile. [facility] History I have reviewed the patient's past medical history: Yes Medical History: Reports:: Hyperlipidemia, Hypertension Denies:: Cancer, Diabetes Mellitus Type 1, Diabetes Mellitus Type 2, MRSA *Have you ever received a pneumonia vaccine?: No *Have you received a flu vaccine this season?: No Other Medical History: Reports: Arthritis, Hypothyroidism, Other Other Surgeries: Yes: Appendectomy, Cholecystectomy, Hysterectomy-Total, Other Amputation: No Fractures: Yes - *Social History Last grade of school completed: 9th or 10th Smoking Status: Never smoker Alcohol Intake: never Alcohol Intake Frequency:: other Substance Use Type: denies use *Occupational Status:: disabled Housing: house Household Members: spouse *Travel in the last 8 weeks: None Family Hx:: Cancer, Diabetes, Heart Attack Review of Systems - Review of Systems Review of systems:: pertinent systems reviewed and negative unless documented below (14 point review of systems performed, pertinent positives and negatives as per HPI) Meds Home Medications Medication Instructions Recorded Confirmed Type Furosemide [Furosemide 40MG tAB*] 1 tab PO DAILY 08/20/18 07/22/21 History atenoloL [Atenolol 50mg Tab] 1 tab PO BID 12/28/17 11/29/20 History atorvastatin 40 mg tablet 40 mg PO DAILY 90 Days tab 01/21/18 11/29/20 History Naproxen 500 mg PO BID 05/16/18 11/29/20 History hydrochlorothiazide 12.5 mg capsule 12.5 mg PO DAILY 03/31/19 11/29/20 History famotidine 20 mg tablet 20 mg PO QHS tab 06/08/19 11/29/20 History losartan 100 mg tablet 100 mg PO tab 06/08/19 11/29/20 History ranitidine HCl 300 mg tablet 300 mg PO DAILY tab 06/08/19 11/29/20 History levothyroxine 75 mcg tablet 75 mcg PO tab 07/06/19 11/29/20 History mupirocin 2 % topical ointment g TOPICAL 05/09/20 11/29/20 History Fluconazole [Diflucan 150mg tab] 150 mg PO ONCE #1 tab 06/30/20 11/29/20 Rx Nystatin [Nystatin Topical Powder 1 applicatio TP TID #1 bot 06/30/20 11/29/20 Rx 30GM*] losartan 50 mg tablet 50 mg PO tab 08/08/20 11/29/20 History potassium chloride 20 mEq 20 meq PO tab 08/08/20 11/29/20 History tablet,extended release(part/cryst) Allergies Allergy/AdvReac Type Severity Reaction Status Date / Time Penicillins Allergy Unknown I-HIVES Verified 11/29/20 11:05 Influenza Virus Vaccines Allergy swelling, Verified 11/29/20 11:05 rash Exam Vital signs and Labs for Last 24 Hours: Temp Pulse Resp BP Pulse Ox 98.2 F 66 24 130/74 86 L 01/15/21 16:00 01/15/21 16:00 01/15/21 16:00 01/15/21 16:00 01/15/21 16:00 Laboratory Results - last 24 hr 01/15/21 09:50: WBC 7.7 D, R
--- NOTE | 2021-01-15 19:58 | PC.NURSE ---
INCREASED O2 TO 90% SATS 86
[2021-01-16] VITALS (24 sets, daily range): BP systolic 67–172; BP diastolic 39–78; PULSE 44–71; RESP 12–46; TEMP 36.4–36.9; O2SAT 82–96; BMI 35.4; BMI 35.2
--- NOTE | 2021-01-16 00:47 | PC.NURSE ---
PT IS NOW MAXED OUT ON VAPOTHERM. HAS BEEN LAYING PRONE FOR APPX AN HOUR NOW. PT SAT STAYING 83-84%. CONTACTED PLANT PROTECTION GUARD MD GARCIA TO UPDATE ON PT. NNO RECEIVED AT THIS TIME.
--- NOTE | 2021-01-16 03:13 | PC.NURSE ---
PT HAS NOW BEEN SWITCHED TO BIPAP. PT TOLERATING WELL, LYING ON HER LEFT SIDE. PT SAT 88% AT THIS TIME. HAVE CALLED AND UPDATED FAMILY ON PT SITUATION. PER HOUSE, PT FAMILY IS ABLE TO COME SEE HER AT THIS TIME. PT IS A&OX4. HOWEVER SEEMS CONFUSED AT TIMES AND VERY ANXIOUS. PT HAS DROPPED TO MID 60S GETTING UP TO THE BEDSIDE COMMODE. PT BECAME VERY WINDED. PT HAS HAD NO C/O PAIN, SOA THIS SHIFT. PT HAS INTERMITTENT DRY COUGH. EVEN WHEN PT DE-SATS TO 60S, SHE REMAINS A&O. PT IS RESTING COMFORTABLY IN BED. VSS WILL CONTINUE TO MONITOR.
--- NOTE | 2021-01-16 05:11 | PC.NURSE ---
PT REMAINS ON BIPAP. 84% O2 SAT AT THIS TIME. PT IS ALERT AND ORIENTED. PT FAMILY CAME IN. THIS NURSE WAS ABLE TO DISCUSS AND CLARIFY CODE STATUS WITH PATIENT AND POA. POA AND PATIENT AGREE TO INTUBATE IF NECESSARY. WILL CONTINUE TO MONITOR.
[2021-01-16 06:46] LABS: Basophils % 0.2 % (0.1-2.0); Hematocrit 38.6 % (37.0-47.0); Hemoglobin 12.8 g/dL (12.2-16.2); Lymphocytes # 0.9 K/mm3 (0.7-4.5); Lymphocytes % 11.3 % (10-50); Mean Corpuscular HGB Conc 33.2 g/dL (31.8-35.4); Mean Corpuscular Hemoglobin 29.3 pg (27.0-31.2); Mean Corpuscular Volume 88.3 fl (81-99); Mean Platelet Volume 9.1 fl (7.4-10.4); Monocytes # 0.3 K/mm3 (0.1-1.0); Monocytes % 3.5 % (1.7-9.3); Platelet Count 229 K/mm3 (142-424); Red Blood Count 4.37 M/mm3 (4.20-5.40); Red Cell Distribution Width 14.7 % (11.5-17.5); White Blood Count 8.2 K/mm3 (4.8-10.8)
[2021-01-16 06:50] LABS: MANUAL DIFFERENTIAL MANUAL DIFFERENTIAL (MANUAL DIFF)
[2021-01-16 06:51] LABS: Alanine Aminotransferase 32 U/L (12-78); Albumin Level 2.7 g/dl (3.5-5.0); Albumin/Globulin Ratio 0.8 (1.1-1.8); Alkaline Phosphatase 87 U/L (38-126); Anion Gap 16.3 mEq/L (5-15); Aspartate Amino Transferase 103 U/L (14-36); Bilirubin,Total 0.6 mg/dl (0.2-1.3); Blood Urea Nitrogen 59 mg/dl (7-17); Calcium 7.8 mg/dl (8.4-10.2); Carbon Dioxide 24 mmol/L (22.0-30.0); Chloride 100 mmol/L (98-107); Creatinine Clearance Estimated 22 mL/min (50-200); Estimated Glomerular Filt Rate 11 ml/min (>60); GFR (African American) 13 ML/MIN (>60); Globulin 3.5 g/dL (1.3-3.2); Glucose 228 mg/dl (74-100); Magnesium 1.5 mg/dl (1.6-2.3); Potassium 4.3 mmoL/L (3.5-5.1); Sodium 136 mmol/L (136-145); Total Protein,Serum 6.2 g/dl (6.3-8.2)
--- NOTE | 2021-01-16 08:12 | HMH.ACPN2 ---
Internal Medicine - PN: Subj *Date: 01/16/21 *Time: 08:12 Interval history: Patient was transitioned over to BiPAP through the night last night because of significant hypoxia even with Vapotherm and nonrebreather. She is alert this morning, wishes to try to take the BiPAP off to eat breakfast. She denies cough, sputum production or fever. Exam Vital signs and Labs for Last 24 Hours: Temp Pulse Resp BP Pulse Ox 98 F 71 23 116/59 L 93 L 01/16/21 04:00 01/16/21 04:00 01/16/21 04:00 01/16/21 04:00 01/16/21 04:00 Laboratory Results - last 24 hr 01/15/21 09:50: WBC 7.7 D, RBC 4.32, Hgb 12.4, Hct 37.1, MCV 85.7, MCH 28.8, MCHC 33.6, RDW 14.9, Plt Count 193, MPV 9.1, Neut % (Auto) 86.9 H, Lymph % (Auto) 10.0, [place] % (Auto) 2.6, Eos % (Auto) 0.2, Baso % (Auto) 0.3, Neut # (Auto) 6.7, Lymph # (Auto) 0.8, [place] # (Auto) 0.2, Eos # (Auto) 0.0, Baso # (Auto) 0.0, Total Counted 100, Neutrophils % (Manual) 91 H, Lymphocytes % (Manual) 5 L, Monocytes % (Manual) 4, Platelet Estimate Normal, Microcytosis 1+ 01/15/21 09:50: PT 10.9, INR 0.92, APTT 29.8 01/15/21 09:50: Sodium 137, Potassium 3.9, Chloride 100, Carbon Dioxide 24, Anion Gap 16.9 H, BUN 53 H D, Creatinine 4.70 H D, Estimated Creat Clear 19, Estimated GFR 9 L*, Est GFR ( Amer) 11 L* D, Glucose 236 H, Calcium 8.5, Total Bilirubin 0.8, AST 92 H D, ALT 27, Alkaline Phosphatase 89, Total Protein 6.6, Albumin 3.1 L, Globulin 3.5 H, Albumin/Globulin Ratio 0.9 L 01/15/21 09:55: SARS-CoV-2 (PCR) Detected A, Influenza A Untype (PCR) Not detected, Influenza Type B (PCR) Not detected 01/15/21 16:30: Sodium 136, Potassium 4.3, Chloride 101, Carbon Dioxide 23, Anion Gap 16.3 H, BUN 55 H, Creatinine 4.50 H, Estimated Creat Clear 20, Estimated GFR 10 L*, Est GFR ( Amer) 12 L*, Glucose 254 H, Calcium 8.4, Total Bilirubin 0.6, AST 90 H, ALT 27, Alkaline Phosphatase 91, Total Protein 6.3, Albumin 2.9 L, Globulin 3.4 H, Albumin/Globulin Ratio 0.9 L 01/16/21 06:15: WBC 8.2, RBC 4.37, Hgb 12.8, Hct 38.6, MCV 88.3, MCH 29.3, MCHC 33.2, RDW 14.7, Plt Count 229, MPV 9.1, Neut % (Auto) 85.0 H, Lymph % (Auto) 11.3, [place] % (Auto) 3.5, Eos % (Auto) 0.0 L, Baso % (Auto) 0.2, Neut # (Auto) 7.0, Lymph # (Auto) 0.9, [place] # (Auto) 0.3, Eos # (Auto) 0.0, Baso # (Auto) 0.0 I & O for Last 24 hours: Intake & Output 01/13/21 01/14/21 01/15/21 01/16/21 11:59 11:59 11:59 11:59 Intake Total 140 / 140 Balance 140 / 140 Weight 214 lb 225 lb 6 oz Narrative: Patient is alert, oriented x3. Wearing BiPAP. Appears comfortable. Lungs have fairly good air entry. Scattered rhonchi that clear with a cough. Heart rate regular. No skin rash. Neurologically intact, abdomen soft, perfusion is adequate. ENT exam appears normal underneath the BiPAP mask. Assessment and Plan (1) Pneumonia due to COVID-19 virus Status: Acute Category: Medical Code(s): U07.1 - COVID-19; J12.82 - Pneumonia due to coronavirus disease 2019 (2) Renal failure, acute Status: Acute Qualifiers: Acute renal failure type: unspecified Qualified Code(s): N17.9 - Acute kidney failure, unspecified Category: Medical Code(s): N17.9 - Acute kidney failure, unspecified (3) Class 1 obesity Status: Chronic Category: Medical Code(s): E66.9 - Obesity, unspecified (4) Essential hypertension Status: Chronic Category: Medical Code(s): I10 - Essential (primary) hypertension (5) Hypothyroidism Status: Chronic Qualifiers: Hypothyroidism type: acquired Qualified Code(s): E03.9 - Hypothyroidism, unspecified Category: Medical Code(s): E03.9 - Hypothyroidism, unspecified - Assessment and plan all Dx Assessment and Plan for all problems:: Oxygenation status stable on BiPAP but obviously tenuous. Try to wean if tolerated today. Continue steroids, supportive care and vitamin therapy for COVID-19. Not a Regeneron candidate given hospitalization and hypoxia issues. Continue IV flu
--- NOTE | 2021-01-16 08:15 | HMH.PHACONS ---
- Pharmacy Consult Date: 01/16/21 Time: 08:15 Referring provider: Reason for Consult:: VANCOMYCIN DOSING Allergies and ADEs:: Allergies Allergy/AdvReac Type Severity Reaction Status Date / Time Penicillins Allergy Unknown I-HIVES Verified 11/29/20 11:05 Influenza Virus Vaccines Allergy swelling, Verified 11/29/20 11:05 rash Home Medications:: Home Medications Medication Instructions Recorded Confirmed Type Furosemide [Furosemide 40MG tAB*] 1 tab PO DAILY 12/28/17 11/29/20 History atenoloL [Atenolol 50mg Tab] 1 tab PO BID 12/28/17 11/29/20 History atorvastatin 40 mg tablet 40 mg PO DAILY 90 Days tab 01/21/18 11/29/20 History Naproxen 500 mg PO BID 05/16/18 11/29/20 History hydrochlorothiazide 12.5 mg capsule 12.5 mg PO DAILY 03/31/19 11/29/20 History famotidine 20 mg tablet 20 mg PO QHS tab 06/08/19 11/29/20 History losartan 100 mg tablet 100 mg PO tab 06/08/19 11/29/20 History ranitidine HCl 300 mg tablet 300 mg PO DAILY tab 06/08/19 11/29/20 History levothyroxine 75 mcg tablet 75 mcg PO tab 07/06/19 11/29/20 History mupirocin 2 % topical ointment g TOPICAL 05/09/20 11/29/20 History Fluconazole [Diflucan 150mg tab] 150 mg PO ONCE #1 tab 06/30/20 11/29/20 Rx Nystatin [Nystatin Topical Powder 1 applicatio TP TID #1 bot 06/30/20 11/29/20 Rx 30GM*] losartan 50 mg tablet 50 mg PO tab 08/08/20 11/29/20 History potassium chloride 20 mEq 20 meq PO tab 08/08/20 11/29/20 History tablet,extended release(part/cryst) Height: 1.7 m Weight: 102.228 kg Laboratory Results:: Laboratory Results - last 24 hr 01/15/21 09:50: WBC 7.7 D, RBC 4.32, Hgb 12.4, Hct 37.1, MCV 85.7, MCH 28.8, MCHC 33.6, RDW 14.9, Plt Count 193, MPV 9.1, Neut % (Auto) 86.9 H, Lymph % (Auto) 10.0, [place] % (Auto) 2.6, Eos % (Auto) 0.2, Baso % (Auto) 0.3, Neut # (Auto) 6.7, Lymph # (Auto) 0.8, [place] # (Auto) 0.2, Eos # (Auto) 0.0, Baso # (Auto) 0.0, Total Counted 100, Neutrophils % (Manual) 91 H, Lymphocytes % (Manual) 5 L, Monocytes % (Manual) 4, Platelet Estimate Normal, Microcytosis 1+ 01/15/21 09:50: PT 10.9, INR 0.92, APTT 29.8 01/15/21 09:50: Sodium 137, Potassium 3.9, Chloride 100, Carbon Dioxide 24, Anion Gap 16.9 H, BUN 53 H D, Creatinine 4.70 H D, Estimated Creat Clear 19, Estimated GFR 9 L*, Est GFR ( Amer) 11 L* D, Glucose 236 H, Calcium 8.5, Total Bilirubin 0.8, AST 92 H D, ALT 27, Alkaline Phosphatase 89, Total Protein 6.6, Albumin 3.1 L, Globulin 3.5 H, Albumin/Globulin Ratio 0.9 L 01/15/21 09:55: SARS-CoV-2 (PCR) Detected A, Influenza A Untype (PCR) Not detected, Influenza Type B (PCR) Not detected 01/15/21 16:30: Sodium 136, Potassium 4.3, Chloride 101, Carbon Dioxide 23, Anion Gap 16.3 H, BUN 55 H, Creatinine 4.50 H, Estimated Creat Clear 20, Estimated GFR 10 L*, Est GFR ( Amer) 12 L*, Glucose 254 H, Calcium 8.4, Total Bilirubin 0.6, AST 90 H, ALT 27, Alkaline Phosphatase 91, Total Protein 6.3, Albumin 2.9 L, Globulin 3.4 H, Albumin/Globulin Ratio 0.9 L 01/16/21 06:15: WBC 8.2, RBC 4.37, Hgb 12.8, Hct 38.6, MCV 88.3, MCH 29.3, MCHC 33.2, RDW 14.7, Plt Count 229, MPV 9.1, Neut % (Auto) 85.0 H, Lymph % (Auto) 11.3, [place] % (Auto) 3.5, Eos % (Auto) 0.0 L, Baso % (Auto) 0.2, Neut # (Auto) 7.0, Lymph # (Auto) 0.9, [place] # (Auto) 0.3, Eos # (Auto) 0.0, Baso # (Auto) 0.0 Medical History: Reports:: Hyperlipidemia, Hypertension Denies:: Cancer, Diabetes Mellitus Type 1, Diabetes Mellitus Type 2, MRSA Assessment and Plan (1) Pneumonia due to COVID-19 virus Status: Acute Category: Medical Code(s): U07.1 - COVID-19; J12.82 - Pneumonia due to coronavirus disease 2018 (2) Renal failure, acute Status: Acute Qualifiers: Acute renal failure type: unspecified Qualified Code(s): N17.9 - Acute kidney failure, unspecified Category: Medical Code(s): N17.9 - Acute kidney failure, unspecified (3) Class 1 obesity Status: Chronic Category: Medical Code(s): E66.9 - Obesity, unspecified (4) Essential hyperten
[2021-01-16 08:28] LABS: Lymphocytes % 8 % (10-50); Monocytes % 2 % (2-9); Neutrophils % 90 % (42-76); Total Cells Counted 100
[2021-01-16 08:29] LABS: Anisocytosis 1+; Microcytosis 1+; Platelet Estimate Normal
--- NOTE | 2021-01-16 09:31 | HMH.PHAINT ---
MEDICATION RECONCILIATION COMPLETED USING EXTERNAL PHARMACY FILL HISTORY AND OFFICE VISIT FROM 11/29/20.
--- NOTE | 2021-01-16 10:03 | PC.NURSE ---
this RN has taken over care at this time
--- NOTE | 2021-01-16 11:00 | PC.NURSE ---
pt O2 sat sustaining 80-84% on Bipap 100% 01/05. Dr. Martinez updated. He ordered and ABG. Notified RT (Evan Benavides). Dr. Martinez updated once ABG results received. No new orders received at this time. Updated RT (Evan Benavides).
[2021-01-16 11:13] LABS: ABG Base Excess -5.5 mmol/L (-2.4-2.3); ABG HCO3 19.9 mmhg (22.0-26.0); ABG Oxygen Saturation 84 % (90-100); ABG PCO2 35.8 mmhg (35.0-45.0); ABG PH 7.36 mmol/L (7.35-7.45)
[2021-01-16 11:16] LABS: Allen's Test Acceptable; Oxygen 100 %; Source Right Radial
[2021-01-16 11:17] LABS: ABG PO2 49.4 mmhg (80-100)
--- NOTE | 2021-01-16 12:32 | PC.NURSE ---
LATE ENTRY [id number]-spok,e to yakov in lab regarding critical creatinine. verified name, , and room number [id number]-notified MD santos, TRINIO.
--- NOTE | 2021-01-16 15:48 | PC.NURSE ---
Dr. Martinez rounding and ordered to intubate pt NOW. Pt is A&O and wishes to be intubated. Daughter (Shameka) has been udpated.
--- NOTE | 2021-01-16 16:00 | PC.NURSE ---
Dr. Esquivel @ [facility] to intubate pt per Dr. Martinez request. 1602: pt intubated with 7.5 ET tube that is 22cm @ the lip 1610: BP 89/40. Dr. Martinez notified and ordered 2L NS bolus. 1614: 1st liter NS bolus started 1619: Dr. Martinez ordered Fentanyl and Propofol gtts. Both gtts started 1643: BP 73/44. Levophed gtt started @ 10mcg/min per Dr. Martinez
--- NOTE | 2021-01-16 16:08 | XR_ITS ---
PROCEDURE: XR CHEST PORTABLE CLINICAL HISTORY: s/p intubation r/t COVID COMPARISON: No exams were available for comparison FINDINGS: 1619 hours. Endotracheal tube has been inserted. The tip is in good position 2.8 cm above the aaron. Diffuse multi focal areas of ground-glass attenuation consistent with Covid19 pneumonia which has markedly progressed compared to the previous exam. No effusions. Borderline cardiomegaly IMPRESSION: Good position of endotracheal tube. Progression of diffuse multi focal bilateral pneumonia Dictated by: Shahid Goldman MD 01/16/2021 16:55 Shahid Goldman MD in [facility] 01/16/2021 16:55
--- NOTE | 2021-01-16 16:14 | P.PCN_ITS ---
[facility] Procedure Note Procedure Note:: Called to the intensive care unit to evaluate the patient for intubation. When I arrived in the patient's room she was in moderate respiratory distress on CPAP. Her oxygen saturations were 84%. She was alert and oriented but in distress. The patient was told that her primary care physician wanted her int ubated because her oxygen levels were too low. The patient verbally consented to the intubation. She was given 50 mg of propofol intravenously. After the patient became sufficiently sedated she was intubated by me. I used a #3 curved laryngoscope blade and visualized her vocal cords without any difficulty. I passed a 7.5 mm endotracheal tube through the cords under direct visualization. The cuff was inflated at 20 cm from the lip. A colorimetric CO2 detector changed color from purple to yellow indicating exhalation of CO2. Breath sounds were audible bilaterally. The patient's primary care physician had already ordered ventilator settings. A chest x-ray has been ordered for review of the endotracheal tube position. No complications. The patient's oxygen saturations did not drop during the procedure or after the procedure.
--- NOTE | 2021-01-16 16:39 | PC.NURSE ---
BP 69/41. Dr. Martinez ordered a Levophed gtt and to keep SBP>90. Order faxed to [facility].
--- NOTE | 2021-01-16 17:23 | PC.NURSE ---
called daughter (Shameka) and updated her on POC.
[2021-01-16 17:36] LABS: ABG Base Excess -8.6 mmol/L (-2.4-2.3); ABG HCO3 17.9 mmhg (22.0-26.0); ABG Oxygen Saturation 77 % (90-100); ABG PCO2 37.5 mmhg (35.0-45.0); ABG TCO2 19.1 mmhg (23-27)
[2021-01-16 17:37] LABS: Allen's Test Patient Unable; Oxygen 100 %; PEEP 16; Tidal Volume 450; Vent Rate 24
[2021-01-16 17:38] LABS: Source Left Radial
--- NOTE | 2021-01-16 17:38 | PC.NURSE ---
Dr. Martinez @ [facility]. He ordered to contact pharmacy and order Remdesevir and Baricitinib 4mg via OG tube daily. Received call from RT (Mitzi) with critical ABG results: pH 7.29, CO2 37.5, pO2 44.8, HCO3 17.9, and O2 sat 77.3%. He ordered to increase PEEP to 15. Notified RT ([facility]).
[2021-01-16 17:40] LABS: ABG PO2 44.8 mmhg (80-100)
--- NOTE | 2021-01-16 17:51 | PC.NURSE ---
Dr. Martinez @ . He ordered a BMP @ [address]. Order entered. Received call from RT (Mitzi) with critical ABG results: pH 7.16, CO2 47.9, pO2 190.7, HCO3 16.9, and O2 sat 98%. Dr. Martinez still in COVID unit and has been updated on results.
[2021-01-16 18:31] LABS: Microscopic, Urine URINE MICROSCOPIC (MICROSCOPIC)
--- NOTE | 2021-01-16 18:38 | PC.NURSE ---
per [facility] pharmacist (Radha): Remdesevier and Baricitinib are contraindicated given pt's Cr CL. She has cancelled both orders @ this time.
[2021-01-16 18:57] LABS: Appearance,Urine CLOUDY (Clear); Bilirubin,Urine Negative (Negative); Blood, Urine 2+ (Negative); Color,Urine YELLOW (Yellow); Glucose,Urine (UA) Negative (Negative); Ketones,Urine Negative (Negative); Leukocyte Esterase,Urine Negative (Negative); Nitrate,Urine Negative (Negative); Protein,Urine 1+ (Negative); Urobilinogen,Urine 0.2 EU/dl (0.2)
--- NOTE | 2021-01-16 19:23 | PC.NURSE ---
checked on tube placement per Dr. pinedo
[2021-01-16 19:29] LABS: Amorphous Sediment,Urine 2+ /lpf; Bacteria,Urine Trace /lpf; WBC,Urine Occasional #/hpf (0-3)
--- NOTE | 2021-01-16 21:27 | PC.NURSE ---
BAGGED PT MULTIPLE TIMES. PEEP INCREASED TO [address] REGAN
[2021-01-16 22:06] LABS: POC Glucose,Bedside 232 (70-110)
[2021-01-17] VITALS (35 sets, daily range): BP systolic 90–147; BP diastolic 53–74; PULSE 41–76; RESP 24–28; TEMP 36.3–36.5; O2SAT 94–98; BMI 35.6
--- NOTE | 2021-01-17 01:48 | PC.NURSE ---
dr. santos notified of heart rate sustaining 38-45. blood pressure 118/65. on 5 mcq levo. order received to continue weaning levo down slowing and watch heart rate.
--- NOTE | 2021-01-17 02:20 | PC.NURSE ---
shift summary began shift with diprivan at 50, fentanyl at 50 and levophed at 10. 100% fio2, 450 tv, 24 rr, 15 peep. during assessment patient began coughing and moving right arm. fentanyl increased to 75 mcq. o2 sats immediately dropped to 65% unable to recover quickly, rt began bagging patient for approximately 10 min. patient placed back on the vent within 5 min patient desated back down to 85% and dropping, rt began bagging patient again, dr. santos paged and notified. new orders received and carried out. fentanyl increased to 100mcq. 0 levophed decreased to 8 mcq. 2200 levophed decreased to 5 mcq.
--- NOTE | 2021-01-17 03:52 | PC.NURSE ---
0300 levophed drip decreased to 3 mcq
--- NOTE | 2021-01-17 05:15 | PC.NURSE ---
0400 levophed drip decreased to 2 mcq
--- NOTE | 2021-01-17 06:00 | XR_ITS ---
PROCEDURE: XR CHEST PORTABLE CLINICAL HISTORY: intubation COMPARISON: CR XR CHEST 2V from 01/13/2021 CR XR CHEST PORTABLE from 01/15/2021 CR XR CHEST PORTABLE from 01/16/2021 FINDINGS: 8:35 a.m. The endotracheal tube tip is low at the ostium of the right mainstem bronchus. There are low lung volumes with cardiomegaly and diffuse bilateral airspace disease probably unchanged given in difference in the degree of ventilation. No evidence of pneumothorax No acute bony abnormalities. IMPRESSION: Low placement of endotracheal tube. Diffuse bilateral pneumonia. Sanam, the patient's nurse in the ICU was notified of these findings by telephone 01/17/2021 at 9:10 a.m. Dictated by: Shahid Goldman MD 01/17/2021 09:11 Shahid Goldman MD in [facility] 01/17/2021 09:11
--- NOTE | 2021-01-17 06:11 | HMH.ITSTN ---
per rn, hold off on cxr until 8am
[2021-01-17 06:15] LABS: Alanine Aminotransferase 25 U/L (12-78); Albumin Level 2.5 g/dl (3.5-5.0); Albumin/Globulin Ratio 0.8 (1.1-1.8); Alkaline Phosphatase 86 U/L (38-126); Anion Gap 16.5 mEq/L (5-15); Aspartate Amino Transferase 87 U/L (14-36); Basophils % 0.3 % (0.1-2.0); Bilirubin,Total 0.8 mg/dl (0.2-1.3); Blood Urea Nitrogen 62 mg/dl (7-17); Calcium 7.1 mg/dl (8.4-10.2); Carbon Dioxide 18 mmol/L (22.0-30.0); Chloride 105 mmol/L (98-107); Creatinine Clearance Estimated 23 mL/min (50-200); Eosinophils % 0.1 % (0.1-12.0); Estimated Glomerular Filt Rate 11 ml/min (>60); GFR (African American) 14 ML/MIN (>60); Globulin 3.1 g/dL (1.3-3.2); Glucose 308 mg/dl (74-100); Hematocrit 35.9 % (37.0-47.0); Lymphocytes # 1.1 K/mm3 (0.7-4.5); Lymphocytes % 10.5 % (10-50); Mean Corpuscular HGB Conc 33.4 g/dL (31.8-35.4); Mean Corpuscular Hemoglobin 29.5 pg (27.0-31.2); Mean Corpuscular Volume 88.4 fl (81-99); Mean Platelet Volume 8.8 fl (7.4-10.4); Monocytes # 0.5 K/mm3 (0.1-1.0); Monocytes % 4.2 % (1.7-9.3); Neutrophils % 84.9 % (37.0-80.0); Platelet Count 280 K/mm3 (142-424); Potassium 4.5 mmoL/L (3.5-5.1); Red Blood Count 4.06 M/mm3 (4.20-5.40); Red Cell Distribution Width 15.2 % (11.5-17.5); Sodium 135 mmol/L (136-145); Total Protein,Serum 5.6 g/dl (6.3-8.2); White Blood Count 10.6 K/mm3 (4.8-10.8)
--- NOTE | 2021-01-17 06:41 | PC.NURSE ---
received call from yakov in lab regarding critical lab value. dr santos paged and notified, no new orders received
--- NOTE | 2021-01-17 07:55 | HMH.ACPN2 ---
Internal Medicine - PN: Subj *Date: 01/17/21 *Time: 07:55 Interval history: Patient was intubated yesterday. Initially had some hypoxia and had to be bagged several times, PEEP was increased to 20 and this seemed to resolve her situation overnight. She has been stable. On minimal dose of Levophed. Has been relatively bradycardic in the 40s. Exam Vital signs and Labs for Last 24 Hours: Temp Pulse Resp BP Pulse Ox 97.6 F 43 L 24 117/63 97 01/17/21 07:00 01/17/21 07:00 01/17/21 07:00 01/17/21 07:00 01/17/21 07:00 Laboratory Results - last 24 hr 01/16/21 06:15: Total Counted 100, Neutrophils % (Manual) 90 H, Lymphocytes % (Manual) 8 L, Monocytes % (Manual) 2, Platelet Estimate Normal, Anisocytosis 1+, Microcytosis 1+ 01/16/21 06:15: Sodium 136, Potassium 4.3, Chloride 100, Carbon Dioxide 24, Anion Gap 16.3 H, BUN 59 H, Creatinine 4.10 H, Estimated Creat Clear 22, Estimated GFR 11 L*, Est GFR ( Amer) 13 L*, Glucose 228 H, Calcium 7.8 L, Magnesium 1.5 L, Total Bilirubin 0.6, AST 103 H, ALT 32, Alkaline Phosphatase 87, Total Protein 6.2 L, Albumin 2.7 L, Globulin 3.5 H, Albumin/Globulin Ratio 0.8 L 01/16/21 11:08: Specimen Source Right radial, O2 % 100, ABG pH 7.36, ABG pCO2 35.8, ABG pO2 49.4 L, ABG HCO3 19.9 L, ABG Total CO2 21.0 L, ABG O2 Saturation 84 L*, ABG Base Excess -5.5 L, Shahid Test Acceptable 01/16/21 17:33: Specimen Source Left radial, O2 % 100, ABG pH 7.30 L, ABG pCO2 37.5, ABG pO2 44.8 L, ABG HCO3 17.9 L, ABG Total CO2 19.1 L, ABG O2 Saturation 77 L*, ABG Base Excess -8.6 L, Shahid Test Patient unable, Vent Rate 24, Tidal Volume 450, PEEP 16 01/16/21 18:19: Urine Color Yellow, Urine Appearance Cloudy, Urine pH 6.0, Ur Specific [place] 1.020, Urine Protein 1+, Urine Glucose (UA) Negative, Urine Ketones Negative, Urine Blood 2+, Urine Nitrate Negative, Urine Bilirubin Negative, Urine Urobilinogen 0.2, Ur Leukocyte Esterase Negative, Urine RBC 10-20, Urine WBC Occasional, Ur Squamous Epith Cells None, Amorphous Sediment 2+, Urine Bacteria Trace 01/16/21 21:58: POC Glucose 232 H 01/17/21 05:50: WBC 10.6 D, RBC 4.06 L, Hgb 12.0 L, Hct 35.9 L, MCV 88.4, MCH 29.5, MCHC 33.4, RDW 15.2, Plt Count 280, MPV 8.8, Neut % (Auto) 84.9 H, Lymph % (Auto) 10.5, [place] % (Auto) 4.2, Eos % (Auto) 0.1, Baso % (Auto) 0.3, Neut # (Auto) 9.0 H, Lymph # (Auto) 1.1, [place] # (Auto) 0.5, Eos # (Auto) 0.0, Baso # (Auto) 0.0 01/17/21 05:50: Sodium 135 L, Potassium 4.5, Chloride 105, Carbon Dioxide 18 L, Anion Gap 16.5 H, BUN 62 H, Creatinine 4.00 H, Estimated Creat Clear 23, Estimated GFR 11 L*, Est GFR ( Amer) 14 L*, Glucose 308 H D, Calcium 7.1 L, Total Bilirubin 0.8, AST 87 H, ALT 25, Alkaline Phosphatase 86, Total Protein 5.6 L, Albumin 2.5 L, Globulin 3.1, Albumin/Globulin Ratio 0.8 L I & O for Last 24 hours: Intake & Output 01/14/21 01/15/21 01/16/21 01/17/21 11:59 11:59 11:59 11:59 Intake Total 140 / 140 5002 / 5002 Output Total 1099 / 1099 Balance 140 / 140 3903 / 3903 Weight 214 lb 224 lb 13.944 oz 227 lb 2 oz Microbiology Reports for the Last 24 Hours: Microbiology 01/15/21 16:12 Sputum - Expectorated Sputum Gram Stain - Final Narrative: Patient is intubated, sedated in the intensive care unit. Lungs have symmetric air sounds, multiple rhonchorous sounds. Trachea is not deviated. Abdomen soft. Extremities are warm and well-perfused. ENT exam otherwise clear. Vallejo catheter draining clear yellow urine. Assessment and Plan (1) Pneumonia due to COVID-19 virus Status: Acute Category: Medical Code(s): U07.1 - COVID-19; J12.82 - Pneumonia due to coronavirus disease 2018 (2) Renal failure, acute Status: Acute Qualifiers: Acute renal failure type: unspecified Qualified Code(s): N17.9 - Acute kidney failure, unspecified Category: Medical Code(s): N17.9 - Acute kidney failure, unspecified (3) Class 1 obesity Status: Chronic Category: Medical Code(s): E66.9 - O
[2021-01-17 08:13] LABS: ABG Base Excess -10.5 mmol/L (-2.4-2.3); ABG HCO3 16.3 mmhg (22.0-26.0); ABG Oxygen Saturation 79 % (90-100); ABG PH 7.28 mmol/L (7.35-7.45); ABG TCO2 17.5 mmhg (23-27)
[2021-01-17 08:15] LABS: Allen's Test Patient Unable; Oxygen 100 %; PEEP 15; Tidal Volume 450; Vent Rate 24
[2021-01-17 08:16] LABS: Source Left Radial
[2021-01-17 08:17] LABS: ABG PO2 46.6 mmhg (80-100)
--- NOTE | 2021-01-17 08:41 | PC.NURSE ---
notified Dr Martinez of pt ABG at 0830. RT recommended PEEP be increased back to 20. per MD increase peep ti 20 and increase rate by 2
--- NOTE | 2021-01-17 08:54 | DIET.NUTRFU ---
Addendum entered by Ophelia Qiu 01/18/21 15:06: TF not yet started. She does continue on high rates propofol and IVF. Weight stable, normal bowel function, renal labs slightly improved, significantly low electrolytes, BG have been high- avg. 260. MAP>60. Pt day 3 NPO, recommend initiating TF and slowly advancing as tolerated. Continuing to monitor and alter regimen as indicated. Original Note: Nutrition consult received to initiate TF. Order entered to begin pt on Pulmocare at 20mL/hr continuous and slowly increase to a goal rate of 45mL/hr continuous. Pulmocare at a goal rate of 45mL/hr will provide pt 1620 kcal, 68g pro, and 848 mL free H2O per day. Pt intubated last night and is currently receiving propofol and IV Fluids. When IVF fluids discontinued recommend pt receive additional 145mL free water flushes every four hours. Pt renal function is poor but creatinine has slightly improved. Will monitor TF tolerance and adjust formula/rate and fluids as needed.
--- NOTE | 2021-01-17 12:32 | PC.NURSE ---
[address] Martinez face to face this am that with the slightest stimulation (palpating chest for crepitus) pt appears to be experiencing seizure like activity. pt hr elevates to the upper 60's (hr has been in the 40's this shift) and o2 sats drop to the 70's. per Dr Martinez, pt is to have an EEG when having an episode
--- NOTE | 2021-01-17 12:35 | PC.NURSE ---
1050 Dr Martinez notified that pt hr is in the upper 30's (36). recommended pt be switched to Dopamine r/t side effect of reflex tachycardia. per md stop levo and start dopamine for sbp > 90 map > 65
--- NOTE | 2021-01-17 13:49 | PC.NURSE ---
Patient is intubated and sedated at time of assessment.
--- NOTE | 2021-01-17 15:47 | PC.NURSE ---
intubated and sedated, pt has not tolerated stimulation well this shift. any time pt is touched or moved minimally, pt O2 and HR are noted to decline. pt turned as tolerated, heels floated, hob at 30 degrees, but pt bed is in trendelenburg position to minimize strain on lungs
[2021-01-18] VITALS (32 sets, daily range): BP systolic 51–162; BP diastolic 32–90; PULSE 50–135; RESP 34–40; TEMP 36.3–37; O2SAT 60–98
--- NOTE | 2021-01-18 00:40 | XR_ITS ---
PROCEDURE INFORMATION: Exam: XR Chest Exam date and time: 01/18/2021 12:40 AM Age: 65 years old Clinical indication: Shortness of breath; Patient HX: Rapid response, covid positive, decrease o2 sat; Additional info: Decreasing o2 sat TECHNIQUE: Imaging protocol: XR of the chest. Views: 1 view. COMPARISON: CR XR CHEST PORTABLE 01/17/2021 8:35 AM FINDINGS: There is an endotracheal tube with its tip 2.6 cm above the aaron. It should be withdrawn 2 cm. Limited penetration of the chest with obese body habitus. Lungs: Extensive infiltrates again identified throughout both lung paulino. The degree of infiltration within both lungs is not appreciably changed when compared with prior examination. Pleural spaces: Unremarkable. No pleural effusion. No pneumothorax. Heart/Mediastinum: Unremarkable. No cardiomegaly. Bones/joints: Degenerative changes noted within the thoracic spine. IMPRESSION: Endotracheal tube should be withdrawn 2 cm. The degree of extensive infiltration within both lung paulino is not appreciably changed since 01/17/2021, 8:35 a.m.
--- NOTE | 2021-01-18 01:17 | HMH.RR ---
Acute Rapid Response Note - Subjective Date Responded: 01/18/21 Time Responded: 00:50 Provider Note: called to see pt in covid-19 unit sec to low sat - pt is intubated - - Objective Findings: Vital Signs - Last 4 Hours Temperature 97.4 F L 01/17/21 22:00 Temperature Source Axillary 01/17/21 22:00 Pulse Rate 58 L 01/18/21 01:00 Respiratory Rate 34 H 01/18/21 01:00 Blood Pressure 101/62 L 01/18/21 01:00 Blood Pressure Mean 75 01/18/21 01:00 Blood Pressure Source Automatic Cuff 01/18/21 01:00 Blood Pressure Position Sitting 01/18/21 01:00 02 Sat by Pulse Oximetry 76 L 01/18/21 01:00 Oxygen Delivery Method 01/18/21 01:00 Oxygen Flow Rate (LPM) 6 01/17/21 09:00 My Orders Category Date Time Status XR chest portable Stat Exams 01/18/21 00:40 Taken see exam - Radiology Findings #1 Xray Reviewed: Chest Image Reviewed: Yes I reviewed the patient's radiology image ED XR Results: Abnormal (increaseed pul changes ) Rapid Response Exam - General General appearance: alert, in distress (moderate) - Head Head exam: atraumatic - Eye Eye exam: Present: PERRL - ENT ENT exam: Present: other (intubated ) - Neck Neck exam: Present: other (intubated ) - Chest Chest inspection: Present: symmetric chest wall rise - Respiratory Respiratory exam: Present: respiratory distress - Cardiovascular Cardiovascular exam: Present: regular rate - Abdominal Exam Abdominal exam: Present: soft - Extremities Exam Extremities exam: Absent: calf tenderness - Neurological Exam Neurological exam: Present: other (obtunded on meds but no posturing ) - Skin Skin exam: Absent: rash RR Procedures/Assess/Plan - Physician Consults Physician Consulted: josephine Shazia consultation 1: 01:40 Comment/Response: make pcp aware of cxr and status (1) Respiratory failure with hypoxia Status: Acute Qualifiers: Chronicity: acute on chronic Qualified Code(s): J96.21 - Acute and chronic respiratory failure with hypoxia (2) Pneumonia due to COVID-19 virus Status: Acute - Assessment and plan all Dx Assessment and Plan for all problems:: will continue at this time
[2021-01-18 01:23] LABS: POC Glucose,Bedside 368 (70-110)
[2021-01-18 01:28] LABS: ABG Base Excess -10.7 mmol/L (-2.4-2.3); ABG HCO3 15.9 mmhg (22.0-26.0); ABG Oxygen Saturation 60 % (90-100); ABG PCO2 33.5 mmhg (35.0-45.0); ABG PH 7.29 mmol/L (7.35-7.45); ABG TCO2 16.9 mmhg (23-27)
[2021-01-18 01:29] LABS: Allen's Test Patient Unable; Oxygen 100 %; PEEP 20; Tidal Volume 450; Vent Rate 26
[2021-01-18 01:30] LABS: ABG PO2 30.3 mmhg (80-100); Source Left Radial
--- NOTE | 2021-01-18 03:08 | PC.NURSE ---
Pt's O2 sats have decreased several times. Respiratory has ventilated the patient several times via ambu bag. At 0107-Shameka Karl notified of pt's O2 sats decreasing to 47%. She was notified of rapid red being called, ER doctor came to bedside and chest x-ray and ABG obtained. She was also notified that her O2 sats would only increase to mid 80s. 0117-Fingerstick 368. 0125-notified by Dr. Aiken to move ETT back 2 cm. 030-Shameka Barajas notified that pt's O2 sat decreased again, respiratory ventilating via ambu-bag and sats in 70s. Family stated that ehy would us to call [facility] and and see if there was anything that they knew we could do to help. 030- Dr. Aiken notified of family request. 308-Dr. Rincon paged to notify of family request.
--- NOTE | 2021-01-18 03:29 | PC.NURSE ---
Dr. Rincon paged at this time.
--- NOTE | 2021-01-18 03:34 | PC.NURSE ---
Dr. Rincon returned page. He was informed of pt's status.
--- NOTE | 2021-01-18 04:00 | PC.NURSE ---
Spoke with Dr. Aiken regarding patient condition. Dr. Aiken spoke with Dr. Rincon via phone. Dr. Aiken in patient room to evaluate patient condition accompanied by Resp. Therapy. Vent rate increased to 35.
--- NOTE | 2021-01-18 04:01 | PC.NURSE ---
Spoke with GONZALO regarding patient condition. Will review the case and call back.
--- NOTE | 2021-01-18 04:15 | PC.NURSE ---
GONZALO will not be following.
--- NOTE | 2021-01-18 04:20 | PC.NURSE ---
Dr. Aiken on phone with Dr. Rincon. Dr. Rincon aware of rate changes. O 2 sats 91 % at this time
[2021-01-18 05:45] LABS: ABG Base Excess -11.3 mmol/L (-2.4-2.3); ABG HCO3 15.2 mmhg (22.0-26.0); ABG Oxygen Saturation 88 % (90-100); ABG PCO2 32.2 mmhg (35.0-45.0); ABG PH 7.29 mmol/L (7.35-7.45); ABG PO2 57.3 mmhg (80-100); ABG TCO2 16.2 mmhg (23-27)
[2021-01-18 05:48] LABS: Oxygen 100 %; PEEP 20; Tidal Volume 450; Vent Rate 35
[2021-01-18 05:49] LABS: Allen's Test Acceptable; Source Right Radial
[2021-01-18 06:03] LABS: Basophils # 0.1 K/mm3 (0-0.2); Basophils % 0.4 % (0.1-2.0); Hematocrit 35.7 % (37.0-47.0); Hemoglobin 12.4 g/dL (12.2-16.2); Lymphocytes # 0.7 K/mm3 (0.7-4.5); Lymphocytes % 5.7 % (10-50); Mean Corpuscular HGB Conc 34.7 g/dL (31.8-35.4); Mean Corpuscular Hemoglobin 30.6 pg (27.0-31.2); Mean Corpuscular Volume 88.2 fl (81-99); Mean Platelet Volume 8.3 fl (7.4-10.4); Monocytes # 0.5 K/mm3 (0.1-1.0); Monocytes % 3.7 % (1.7-9.3); Neutrophils # 11.8 K/mm3 (1.8-7.8); Neutrophils % 90.3 % (37.0-80.0); Platelet Count 244 K/mm3 (142-424); Red Blood Count 4.05 M/mm3 (4.20-5.40); Red Cell Distribution Width 15.3 % (11.5-17.5); White Blood Count 13.1 K/mm3 (4.8-10.8)
[2021-01-18 06:10] LABS: MANUAL DIFFERENTIAL MANUAL DIFFERENTIAL (MANUAL DIFF)
[2021-01-18 06:36] LABS: Burr Cells 2+; Lymphocytes % 8 % (10-50); Monocytes % 4 % (2-9); Neutrophils % 86 % (42-76); Platelet Estimate Normal; Poikilocytosis 2+; Total Cells Counted 100
[2021-01-18 06:56] LABS: Alanine Aminotransferase 20 U/L (12-78); Albumin Level 2.4 g/dl (3.5-5.0); Albumin/Globulin Ratio 0.8 (1.1-1.8); Alkaline Phosphatase 100 U/L (38-126); Aspartate Amino Transferase 71 U/L (14-36); Bilirubin,Total 0.6 mg/dl (0.2-1.3); Blood Urea Nitrogen 69 mg/dl (7-17); Calcium 6.4 mg/dl (8.4-10.2); Carbon Dioxide 14 mmol/L (22.0-30.0); Chloride 102 mmol/L (98-107); Creatinine Clearance Estimated 28 mL/min (50-200); Estimated Glomerular Filt Rate 14 ml/min (>60); GFR (African American) 17 ML/MIN (>60); Globulin 3.2 g/dL (1.3-3.2); Glucose 374 mg/dl (74-100); Magnesium 1.2 mg/dl (1.6-2.3); Sodium 132 mmol/L (136-145); Total Protein,Serum 5.6 g/dl (6.3-8.2)
--- NOTE | 2021-01-18 07:06 | HMH.ACPN2 ---
Internal Medicine - PN: Subj *Date: 01/18/21 *Time: 18:47 Interval history: Patient has shown clinical decline in the past 24 hours. Difficulty ventilating overnight necessitating bagging and adjustment to ventilator. Appreciate ER attending's assistance with addressing acute needs. Please see their notes for full details. Patient remains hemodynamically stable, on dopamine for bradycardia. Afebrile. Labs reviewed this morning, slight improvement in creatinine. Discussed patient after morning rounds with pulmonology, consulted for further assistance. Exam Vital signs and Labs for Last 24 Hours: Temp Pulse Resp BP Pulse Ox 97.6 F 59 L 35 H 147/81 H 88 L 01/18/21 05:00 01/18/21 06:18 01/18/21 06:25 01/18/21 06:18 01/18/21 06:25 Laboratory Results - last 24 hr 01/17/21 06:00: Specimen Source Left radial, O2 % 100, ABG pH 7.28 L, ABG pCO2 36.0, ABG pO2 46.6 L, ABG HCO3 16.3 L, ABG Total CO2 17.5 L, ABG O2 Saturation 79 L*, ABG Base Excess -10.5 L, Shahid Test Patient unable, Vent Rate 24, Tidal Volume 450, PEEP 15 01/18/21 01:00: Specimen Source Left radial, O2 % 100, ABG pH 7.29 L, ABG pCO2 33.5 L, ABG pO2 30.3 L, ABG HCO3 15.9 L, ABG Total CO2 16.9 L, ABG O2 Saturation 60 L*, ABG Base Excess -10.7 L, Shahid Test Patient unable, Vent Rate 26, Tidal Volume 450, PEEP 20 01/18/21 01:17: POC Glucose 368 H* 01/18/21 05:20: WBC 13.1 H, RBC 4.05 L, Hgb 12.4, Hct 35.7 L, MCV 88.2, MCH 30.6, MCHC 34.7, RDW 15.3, Plt Count 244, MPV 8.3, Neut % (Auto) 90.3 H, Lymph % (Auto) 5.7 L, [place] % (Auto) 3.7, Eos % (Auto) 0.0 L, Baso % (Auto) 0.4, Neut # (Auto) 11.8 H, Lymph # (Auto) 0.7, [place] # (Auto) 0.5, Eos # (Auto) 0.0, Baso # (Auto) 0.1, Total Counted 100, Neutrophils % (Manual) 86 H, Band Neutrophils % 2.0, Lymphocytes % (Manual) 8 L, Monocytes % (Manual) 4, Platelet Estimate Normal, Poikilocytosis 2+, [place] Cells 2+ 01/18/21 05:20: Sodium 132 L, Potassium 5.0, Chloride 102, Carbon Dioxide 14 L, Anion Gap 21.0 H, BUN 69 H, Creatinine 3.30 H, Estimated Creat Clear 28, Estimated GFR 14 L*, Est GFR ( Amer) 17 L* D, Glucose 374 H D, Calcium 6.4 L, Total Bilirubin 0.6, AST 71 H, ALT 20, Alkaline Phosphatase 100, Total Protein 5.6 L, Albumin 2.4 L, Globulin 3.2, Albumin/Globulin Ratio 0.8 L 01/18/21 05:20: Magnesium 1.2 L D 01/18/21 06:00: Specimen Source Right radial, O2 % 100, ABG pH 7.29 L, ABG pCO2 32.2 L, ABG pO2 57.3 L, ABG HCO3 15.2 L, ABG Total CO2 16.2 L, ABG O2 Saturation 88 L, ABG Base Excess -11.3 L, Shahid Test Acceptable, Vent Rate 35, Tidal Volume 450, PEEP 20 I & O for Last 24 hours: Intake & Output 01/15/21 01/16/21 01/17/21 01/18/21 23:59 23:59 23:59 23:59 Intake Total 20 / 140 3074 / 3074 5179 / 5179 1889 / 1889 Output Total 616 / 721 1148 / 1148 200 / 200 Balance 20 / 140 2458 / 2353 4031 / 4031 1689 / 1689 Weight 101.151 kg 102 kg 103.022 kg Assessment and Plan (1) Respiratory failure with hypoxia Status: Acute Qualifiers: Chronicity: acute on chronic Qualified Code(s): J96.21 - Acute and chronic respiratory failure with hypoxia Category: Medical Code(s): J96.91 - Respiratory failure, unspecified with hypoxia (2) Pneumonia due to COVID-19 virus Status: Acute Category: Medical Code(s): U07.1 - COVID-19; J12.82 - Pneumonia due to coronavirus disease 2019 (3) Hypocalcemia Status: Acute Category: Medical Code(s): E83.51 - Hypocalcemia (4) Renal failure, acute Status: Acute Qualifiers: Acute renal failure type: unspecified Qualified Code(s): N17.9 - Acute kidney failure, unspecified Category: Medical Code(s): N17.9 - Acute kidney failure, unspecified (5) Class 1 obesity Status: Chronic Category: Medical Code(s): E66.9 - Obesity, unspecified (6) Hypothyroidism Status: Chronic Qualifiers: Hypothyroidism type: acquired Qualified Code(s): E03.9 - Hypothyroidism, unspecified Category: Medical Code(s): E03.9 - Hypothyroidism, unspecified
[2021-01-18 09:00] LABS: POC Glucose,Bedside 394 (70-110)
--- NOTE | 2021-01-18 09:25 | HMH.PULMCON ---
*Admission Date: 01/15/21 *Reason for consult:: Acute hypoxic respiratory failure, COVID-19 pneumonia *History of present illness: Much of the history is obtained from chart review and primary care physician. Ms. Crowder is a 65-year-old female no prior respiratory complaints diagnosed with COVID-19 pneumonia as an outpatient basis presented hospital worsening respiratory failure rapidly worsening mental needing intubation and mechanical ventilatory support and pulmonary was called for further management. [facility] History Medical History: Reports:: Hyperlipidemia, Hypertension Denies:: Cancer, Diabetes Mellitus Type 1, Diabetes Mellitus Type 2, MRSA *Have you ever received a pneumonia vaccine?: No *Have you received a flu vaccine this season?: No Other Medical History: Reports: Arthritis, Hypothyroidism, Other Other Surgeries: Yes: Appendectomy, Cholecystectomy, Hysterectomy-Total, Other Amputation: No Fractures: Yes - *Social History Last grade of school completed: 9th or 10th Smoking Status: Never smoker Alcohol Intake: never Alcohol Intake Frequency:: other Substance Use Type: denies use *Occupational Status:: disabled Housing: house Household Members: spouse *Travel in the last 8 weeks: None Family Hx:: Cancer, Diabetes, Heart Attack ROS - Review of Systems Review of systems:: unable to obtain Patient intubated and sedated Meds Home Medications Medication Instructions Recorded Confirmed Type Furosemide [Furosemide 40MG tAB*] 1 tab PO BID 12/28/17 01/16/21 History atenoloL [Atenolol 50mg Tab] 1 tab PO BID 12/28/17 01/16/21 History atorvastatin 40 mg tablet 40 mg PO DAILY 90 Days tab 01/21/18 01/16/21 History Naproxen 500 mg PO BID 05/16/18 01/16/21 History hydrochlorothiazide 12.5 mg capsule 12.5 mg PO DAILY 03/31/19 01/16/21 History famotidine 20 mg tablet 20 mg PO QHS tab 06/08/19 01/16/21 History levothyroxine 75 mcg tablet 75 mcg PO DAILY tab 07/06/19 01/16/21 History losartan 50 mg tablet 50 mg PO DAILY tab 08/08/20 01/16/21 History potassium chloride 20 mEq 40 meq PO DAILY tab 08/08/20 01/16/21 History tablet,extended release(part/cryst) Omeprazole [Omeprazole 20mg 20 mg PO DAILY 01/16/21 01/16/21 History Capsule] Allergies Allergy/AdvReac Type Severity Reaction Status Date / Time Penicillins Allergy Unknown I-HIVES Verified 11/29/20 11:05 Influenza Virus Vaccines Allergy swelling, Verified 11/29/20 11:05 rash Exam - Constitutional Constitutional:: Absent: no acute distress - HENMT Exam HENMT: Present: normocephalic, atraumatic - Eye Exam Eyes:: Present: normal appearance both eyes and related structures - Neck Exam Neck:: Present: normal visual inspection - Respiratory Exam Respiratory:: Present: respiratory distress, crackles. Absent: wheezing - Cardiovascular Exam Cardiac:: Present: S1, S2 - GI Exam GI:: Present: soft. Absent: distended - Skin Exam Skin: Present: no rash - Neurological Exam Intubated and sedated - Extremities Exam Extremities: Present: no cyanosis, no clubbing, edema Internal Medicine - CN: Reslt - Labs CBC & Chem 7: 01/18/21 05:20 01/18/21 05:20 Labs: Short CBC 01/18/21 Range/Units 05:20 WBC 13.1 H (4.8-10.8) K/mm3 Hgb 12.4 (12.2-16.2) g/dL Hct 35.7 L (37.0-47.0) % Plt Count 244 (142-424) K/mm3 BMP 01/18/21 05:20 Sodium 132 L Potassium 5.0 Chloride 102 Carbon Dioxide 14 L BUN 69 H Creatinine 3.30 H Glucose 374 H D Calcium 6.4 L Liver Function 01/18/21 Range/Units 05:20 Total Bilirubin 0.6 (0.2-1.3) mg/dl AST 71 H (14-36) U/L ALT 20 (12-78) U/L Alkaline Phosphatase 100 (38-126) U/L Albumin 2.4 L (3.5-5.0) g/dl - ABG Interpretation ABG results: 01/16/21 01/16/21 01/17/21 11:08 17:33 06:00 ABG pH 7.36 7.30 L 7.28 L ABG pCO2 35.8 37.5 36.0 ABG pO2 49.4 L 44.8 L 46.6 L ABG HCO3 19.9 L 17.9 L 16.3 L ABG Total CO2 21.0 L 1
--- NOTE | 2021-01-18 10:31 | PC.NURSE ---
Addendum entered by Amber De Los Santos RN 01/18/21 10:32: PEEP increased to 22 ABG to be collected @ 1230 Original Note: TV increased to [address] Louis
[2021-01-18 12:37] LABS: ABG Base Excess -13.1 mmol/L (-2.4-2.3); ABG HCO3 12.7 mmhg (22.0-26.0); ABG Oxygen Saturation 98 % (90-100); ABG PCO2 24.2 mmhg (35.0-45.0); ABG PH 7.34 mmol/L (7.35-7.45); ABG PO2 115.3 mmhg (80-100); ABG TCO2 13.4 mmhg (23-27)
[2021-01-18 12:49] LABS: Oxygen 100 %; Tidal Volume 480
[2021-01-18 12:50] LABS: Allen's Test UNABLE; PEEP 22; Source R RADIAL; Vent Rate 35
--- NOTE | 2021-01-18 13:46 | CA_ITS ---
APPROVED REPORT Bilateral Lower Extremity Venous Study for DVT. Filtering Machine Tender: MARYURI Indications Lower Extremity Edema: Bilateral Shortness of breath Lower Extremity Swelling: Bilateral Hypoxia, COVID, currently on the ventilator, limited cooperation. Risk Factors Immobility Obesity Vein Imaging CFV (R): compressive, spontaneous, phasic, augmentation FEM (R): compressive, spontaneous, phasic, augmentation POP (R): compressive, spontaneous, phasic, augmentation PTV (R): Compressible GSV (R): Compressible Peroneals (R):Compressible CFV (L): compressive, spontaneous, phasic, augmentation FEM (L): compressive, spontaneous, phasic, augmentation POP (L): compressive, spontaneous, phasic, augmentation PTV (L): Compressible GSV (L): Compressible Peroneals (L):Compressible Findings No evidence of DVT or superficial thrombophlebitis in the veins scanned of the right lower extremity. No evidence of DVT or superficial thrombophlebitis in the veins scanned of the left lower extremity. Non-vascularized cystic structure visualized in the right popliteal fossa measuring approximately 5.5 x 2.5 cm consistent with a bakers cyst. Conclusion No evidence of DVT or superficial thrombophlebitis in the veins scanned of the right lower extremity. No evidence of DVT or superficial thrombophlebitis in the veins scanned of the left lower extremity. Non-vascularized cystic structure visualized in the right popliteal fossa measuring approximately 5.5 x 2.5 cm consistent with a bakers cyst. Electronically signed by : Shahid Goldamn MD 01/18/2021 16:46:39
--- NOTE | 2021-01-18 14:01 | PC.NURSE ---
Tracheal Aspirate acquired via endotracheal suctioning. Lab contacted to excelsior picker specimen.
--- NOTE | 2021-01-18 18:26 | PC.NURSE ---
Janine Zhou RN attempted to place NGT, resistance met and pt desat as low as high 60's. Efforts stopped to place NGT and pt bagged for about 5 minutes. Sat currently 92%, VSS. Will pass this in reports.
[2021-01-18 18:36] LABS: POC Glucose,Bedside 407 (70-110)
[2021-01-18 18:46] LABS: POC Glucose,Bedside 442 (70-110)
--- NOTE | 2021-01-18 20:31 | XR_ITS ---
PROCEDURE INFORMATION: Exam: XR Chest Exam date and time: 01/18/2021 8:31 PM Age: 65 years old Clinical indication: Other: Covid, intubated, decreasing o2 sats; Additional info: Decreasing o2 sat covid intubated TECHNIQUE: Imaging protocol: XR of the chest. Views: 1 view. COMPARISON: CR XR CHEST PORTABLE 01/18/2021 12:46 AM FINDINGS: Tubes, catheters and devices: There is an endotracheal tube with its tip 2.9 cm above the aaron. Lungs: Extensive bilateral parenchymal infiltrates identified. Increasing infiltration particularly within the upper lobes when compared with prior examination of 12:53 a.m. Pleural spaces: Unremarkable. No pleural effusion. No pneumothorax. Heart/Mediastinum: Unremarkable. No cardiomegaly. Bones/joints: Unremarkable. IMPRESSION: 1. Endotracheal tube is stable in position when compared with prior examination. 2. Increasing parenchymal infiltrates particularly within the upper lobes when compared with prior examination. 3. Progress examination is suggested.
[2021-01-18 21:21] LABS: Basophils # 0.2 K/mm3 (0-0.2); Basophils % 0.7 % (0.1-2.0); Hematocrit 36.4 % (37.0-47.0); Hemoglobin 12.7 g/dL (12.2-16.2); Lymphocytes # 1.1 K/mm3 (0.7-4.5); Lymphocytes % 5.1 % (10-50); Mean Corpuscular HGB Conc 34.8 g/dL (31.8-35.4); Mean Corpuscular Hemoglobin 30.3 pg (27.0-31.2); Mean Platelet Volume 8.6 fl (7.4-10.4); Monocytes # 0.5 K/mm3 (0.1-1.0); Monocytes % 2.5 % (1.7-9.3); Neutrophils # 19.2 K/mm3 (1.8-7.8); Neutrophils % 91.6 % (37.0-80.0); Platelet Count 272 K/mm3 (142-424); Red Blood Count 4.19 M/mm3 (4.20-5.40)
[2021-01-18 21:25] LABS: MANUAL DIFFERENTIAL MANUAL DIFFERENTIAL (MANUAL DIFF)
[2021-01-18 21:30] LABS: Chloride 103 mmol/L (98-107); Sodium 131 mmol/L (136-145)
[2021-01-18 21:33] LABS: Blood Urea Nitrogen 74 mg/dl (7-17); Creatinine Clearance Estimated 33 mL/min (50-200); Estimated Glomerular Filt Rate 17 ml/min (>60); GFR (African American) 21 ML/MIN (>60)
[2021-01-18 21:34] LABS: Carbon Dioxide 13 mmol/L (22.0-30.0); Glucose 362 mg/dl (74-100)
[2021-01-18 21:39] LABS: Lymphocytes % 11 % (10-50); Monocytes % 3 % (2-9); Neutrophils % 79 % (42-76); Platelet Estimate Normal; RBC Morphology Normal; Rouleaux 1+; Total Cells Counted 100
--- NOTE | 2021-01-18 22:01 | HMH.OPNOTE ---
Date of procedure: 01/18/21 Pre-op Diagnosis:: Inadequate venous access Post-op Diagnosis:: Same Procedure performed:: Triple-lumen catheter placement (right femoral vein access) Surgeon:: Jimmie Cazares MD Anesthesia: none Estimated blood loss (mL): 5 Operative findings:: 7 Guyanese triple-lumen catheter secured in right femoral vein. Brown port and blue port flushed without difficulty. White port unable to flush. Operative note:: The right groin was prepped and draped in a sterile fashion. A large bore needle was utilized to access the right femoral vein. Utilizing a modified Seldinger technique the 7 [place]yanese triple-lumen catheter was secured in position at 20 cm. The brown port and blue port flushed without difficulty. The white port did not flush. Dressings were applied. Condition: critical Disposition: no change Specimens:: None Complications:: No immediate
--- NOTE | 2021-01-18 22:17 | PC.NURSE ---
pt being bagged at this time
--- NOTE | 2021-01-18 22:56 | PC.NURSE ---
Late entry: 01/18/21 0346-GONZALO notified of 3T GCS. Spoke with Ousmane Calabrese. 0401-Jenny Holloway called back from [facility] for more information. 0430-Jenny Holloway stated that GONZALO was not going to follow patient but to call back with time of .
--- NOTE | 2021-01-18 22:58 | PC.NURSE ---
Around approx. 2014 her oxygen began to drop to low 70s. Pt was ventilated via ambu bag and respiratory was called stat into room. Respiratory came into room and started to ventilate patient via ambu bag. 2026-Dr. Coronel called and updated on patient's status. O2 decreasing to 50s when being placed back on vent. Received n/o for lasix 80mg and stat chest x-ray, and ABG. 2045-Dr. Bright consulted, notified of ABG. 2101-Rapid red called 2101-Dr. Louis 2102- Dr. Louis returned call and gave orders to start levophed and d/x dopamine. He stated once her BP is increased to give Rocuronium 50mg IV once then for respiratory to ventilate via ambu bag to increase her sats then to place back on vent and increase her PEEP to 24. He reported for a central line to be placed. 2104-Dr. Cazares was paged and he spoke with Dr. Aiken 2117-Shameka Barajas notified of patient's condition and she wants to continue with anything necessary. 2129- at the bedside for central line placement. BP 121/77, HR 65, O2 80%, and respiratory is ventilating via ambu bag at this time. 2140-Spoke with Dr. Louis about nursing not able to push Rocuronium. He requested Dr. Cazares be asked to administer medication. Dr. Cazares agreed to push rocuronium. 2158-BP 154/86, HR 77, R 35, 94%. She was placed back on ventilator and PEEO was increased to 24. 2199-Pritesh Coronel updated and given ABG results. 2203-Dr. Louis updated. He stated to deep sedate patient and to switch medications to central line. Versed PRN order received.
[2021-01-19] VITALS (36 sets, daily range): BP systolic 92–148; BP diastolic 44–103; PULSE 50–72; RESP 35; TEMP 36.2–36.6; O2SAT 92–100; BMI 37.6
[2021-01-19 01:32] LABS: POC Glucose,Bedside 331 (70-110)
[2021-01-19 05:35] LABS: POC Glucose,Bedside 331 (70-110)
[2021-01-19 05:45] LABS: Basophils # 0.3 K/mm3 (0-0.2); Basophils % 1.2 % (0.1-2.0); Eosinophils % 0.1 % (0.1-12.0); Hematocrit 37.7 % (37.0-47.0); Lymphocytes % 3.6 % (10-50); Mean Corpuscular HGB Conc 34.4 g/dL (31.8-35.4); Mean Corpuscular Hemoglobin 29.8 pg (27.0-31.2); Mean Corpuscular Volume 86.7 fl (81-99); Mean Platelet Volume 7.4 fl (7.4-10.4); Monocytes % 3.6 % (1.7-9.3); Neutrophils # 25.4 K/mm3 (1.8-7.8); Neutrophils % 91.6 % (37.0-80.0); Platelet Count 320 K/mm3 (142-424); Red Blood Count 4.35 M/mm3 (4.20-5.40); Red Cell Distribution Width 14.5 % (11.5-17.5); White Blood Count 27.7 K/mm3 (4.8-10.8)
[2021-01-19 06:15] LABS: MANUAL DIFFERENTIAL MANUAL DIFFERENTIAL (MANUAL DIFF)
[2021-01-19 06:17] LABS: Alanine Aminotransferase 17 U/L (12-78); Albumin Level 2.3 g/dl (3.5-5.0); Albumin/Globulin Ratio 0.7 (1.1-1.8); Alkaline Phosphatase 140 U/L (38-126); Anion Gap 22.2 mEq/L (5-15); Aspartate Amino Transferase 61 U/L (14-36); Bilirubin,Total 0.8 mg/dl (0.2-1.3); Carbon Dioxide 12 mmol/L (22.0-30.0); Chloride 103 mmol/L (98-107); Creatinine Clearance Estimated 38 mL/min (50-200); Estimated Glomerular Filt Rate 19 ml/min (>60); GFR (African American) 22 ML/MIN (>60); Globulin 3.3 g/dL (1.3-3.2); Glucose 300 mg/dl (74-100); Potassium 5.2 mmoL/L (3.5-5.1); Sodium 132 mmol/L (136-145); Total Protein,Serum 5.6 g/dl (6.3-8.2)
[2021-01-19 06:22] LABS: Lymphocytes % 9 % (10-50); Monocytes % 1 % (2-9); Neutrophils % 76 % (42-76); Platelet Estimate Normal; RBC Morphology Normal; Total Cells Counted 100
[2021-01-19 06:30] LABS: Blood Urea Nitrogen 75 mg/dl (7-17)
[2021-01-19 06:31] LABS: Magnesium 1.6 mg/dl (1.6-2.3)
[2021-01-19 06:33] LABS: Calcium 5.2 mg/dl (8.4-10.2)
[2021-01-19 08:08] LABS: ABG Base Excess -15.4 mmol/L (-2.4-2.3); ABG HCO3 12.1 mmhg (22.0-26.0); ABG Oxygen Saturation 99 % (90-100); ABG PCO2 29.1 mmhg (35.0-45.0); ABG PH 7.24 mmol/L (7.35-7.45); ABG PO2 162.3 mmhg (80-100); ABG TCO2 12.9 mmhg (23-27)
--- NOTE | 2021-01-19 09:05 | HMH.ACPN2 ---
Internal Medicine - PN: Subj *Date: 01/19/21 *Time: 09:05 Interval history: Patient had fairly significant events through the night. She had significant evidence of hypoxia and required bagging through the night. Pulmonary consultation recommended paralysis with rocuronium and increased sedation as well as central line placement which was done by general surgery consultation-certainly appreciate this help overnight. This morning she remains paralyzed, sedated. Respiratory mechanics are about the same, ventilatory settings reviewed with respiratory therapist and nursing. Significant electrolyte abnormalities noted, pulmonary consultation has ordered replacement as reviewed. Exam Vital signs and Labs for Last 24 Hours: Temp Pulse Resp BP Pulse Ox 97.6 F 61 35 H 143/76 H 98 01/19/21 06:00 01/19/21 06:33 01/19/21 06:33 01/19/21 06:33 01/19/21 06:33 Laboratory Results - last 24 hr 01/18/21 12:30: Specimen Source R radial, O2 % 100, ABG pH 7.34 L, ABG pCO2 24.2 L, ABG pO2 115.3 H, ABG HCO3 12.7 L, ABG Total CO2 13.4 L, ABG O2 Saturation 98, ABG Base Excess -13.1 L, Shahid Test Unable, Vent Rate 35, Tidal Volume 480, PEEP 22 01/18/21 15:10: POC Glucose 407 H* 01/18/21 18:40: POC Glucose 442 H* 01/18/21 20:58: WBC 21.0 H* D, RBC 4.19 L, Hgb 12.7, Hct 36.4 L, MCV 87.0, MCH 30.3, MCHC 34.8, RDW 15.0, Plt Count 272, MPV 8.6, Neut % (Auto) 91.6 H, Lymph % (Auto) 5.1 L, [place] % (Auto) 2.5, Eos % (Auto) 0.0 L, Baso % (Auto) 0.7, Neut # (Auto) 19.2 H, Lymph # (Auto) 1.1, [place] # (Auto) 0.5, Eos # (Auto) 0.0, Baso # (Auto) 0.2, Total Counted 100, Neutrophils % (Manual) 79 H, Band Neutrophils % 7.0, Lymphocytes % (Manual) 11, Monocytes % (Manual) 3, Platelet Estimate Normal, RBC Morphology Normal, Rouleaux 1+ 01/18/21 20:58: Sodium 131 L, Potassium 5.0, Chloride 103, Carbon Dioxide 13 L, Anion Gap 20.0 H, BUN 74 H, Creatinine 2.80 H, Estimated Creat Clear 33, Estimated GFR 17 L*, Est GFR ( Amer) 21 L D, Glucose 362 H, Calcium 6.0 L 01/19/21 01:24: POC Glucose 331 H* 01/19/21 05:24: POC Glucose 331 H* 01/19/21 05:32: WBC 27.7 H* D, RBC 4.35, Hgb 13.0, Hct 37.7, MCV 86.7, MCH 29.8, MCHC 34.4, RDW 14.5, Plt Count 320, MPV 7.4, Neut % (Auto) 91.6 H, Lymph % (Auto) 3.6 L, [place] % (Auto) 3.6, Eos % (Auto) 0.1, Baso % (Auto) 1.2, Neut # (Auto) 25.4 H, Lymph # (Auto) 1.0, [place] # (Auto) 1.0, Eos # (Auto) 0.0, Baso # (Auto) 0.3 H, Total Counted 100, Neutrophils % (Manual) 76, Band Neutrophils % 14.0 H, Lymphocytes % (Manual) 9 L, Monocytes % (Manual) 1 L, Platelet Estimate Normal, RBC Morphology Normal 01/19/21 05:32: Sodium 132 L, Potassium 5.2 H, Chloride 103, Carbon Dioxide 12 L, Anion Gap 22.2 H, BUN 75 H, Creatinine 2.60 H, Estimated Creat Clear 38, Estimated GFR 19 L*, Est GFR ( Amer) 22 L, Glucose 300 H, Calcium 5.2 L* D, Magnesium 1.6 D, Total Bilirubin 0.8, AST 61 H, ALT 17, Alkaline Phosphatase 140 H, Total Protein 5.6 L, Albumin 2.3 L, Globulin 3.3 H, Albumin/Globulin Ratio 0.7 L I & O for Last 24 hours: Intake & Output 01/16/21 01/17/21 01/18/21 01/19/21 11:59 11:59 11:59 11:59 Intake Total 140 / 140 6164 / 6410 3858 / 3858 3366 / 3366 Output Total 1299 / 1424 665 / 665 500 / 500 Balance 140 / 140 4865 / 4986 3193 / 3193 2866 / 2866 Weight 224 lb 13.944 oz 227 lb 2 oz 239 lb 12.8 oz Microbiology Reports for the Last 24 Hours: Microbiology 01/15/21 16:12 Sputum - Expectorated Sputum Gram Stain - Final 01/15/21 16:12 Sputum - Expectorated Sputum Sputum Culture - Preliminary 01/18/21 14:05 Sputum - Endotracheal Tube Aspirate Gram Stain - Final Narrative: Patient is paralyzed, sedated in the intensive care unit, intubated. Lungs have symmetric air entry. Rhonchorous ventilatory sounds. Heart rate regular in the 60s. Abdomen soft. Vallejo catheter draining clear yellow urine. Patient has minimal ankle edema. Good distal perfusion. Assessment and Plan (1) Respiratory failure with hypoxia Statu
--- NOTE | 2021-01-19 09:13 | PC.NURSE ---
received call from Dr. Louis with new orders: 3g Ca Gluconate IV NOW, Kayexelate 15g QID prn (pt needs to produce 2 BMs/day), give Kayexelate 15g via OG tube NOW, BMP @ 1500, if Ca<7 @ 1500 give additional 3 amps Ca Gluconate, start Insulin gtt @ 0.05units/kg/hr, FSBS Q2, Bumex 4mg IV x 1 dose NOW. Orders read back and verified. BMP entered in computer. All med orders faxed to pharmacy.
[2021-01-19 09:45] LABS: Oxygen 100 %; PEEP 24; Tidal Volume 480; Vent Rate 35
[2021-01-19 09:46] LABS: Allen's Test Acceptable; Source Left Radial
--- NOTE | 2021-01-19 11:55 | HMH.ACPN2 ---
Internal Medicine - PN: Subj *Date: 01/19/21 *Time: 11:55 Exam Vital signs and Labs for Last 24 Hours: Temp Pulse Resp BP Pulse Ox 97.6 F 61 35 H 143/76 H 98 01/19/21 06:00 01/19/21 06:33 01/19/21 06:33 01/19/21 06:33 01/19/21 06:33 Laboratory Results - last 24 hr 01/18/21 12:30: Specimen Source R radial, O2 % 100, ABG pH 7.34 L, ABG pCO2 24.2 L, ABG pO2 115.3 H, ABG HCO3 12.7 L, ABG Total CO2 13.4 L, ABG O2 Saturation 98, ABG Base Excess -13.1 L, Shahid Test Unable, Vent Rate 35, Tidal Volume 480, PEEP 22 01/18/21 15:10: POC Glucose 407 H* 01/18/21 18:40: POC Glucose 442 H* 01/18/21 20:58: WBC 21.0 H* D, RBC 4.19 L, Hgb 12.7, Hct 36.4 L, MCV 87.0, MCH 30.3, MCHC 34.8, RDW 15.0, Plt Count 272, MPV 8.6, Neut % (Auto) 91.6 H, Lymph % (Auto) 5.1 L, [place] % (Auto) 2.5, Eos % (Auto) 0.0 L, Baso % (Auto) 0.7, Neut # (Auto) 19.2 H, Lymph # (Auto) 1.1, [place] # (Auto) 0.5, Eos # (Auto) 0.0, Baso # (Auto) 0.2, Total Counted 100, Neutrophils % (Manual) 79 H, Band Neutrophils % 7.0, Lymphocytes % (Manual) 11, Monocytes % (Manual) 3, Platelet Estimate Normal, RBC Morphology Normal, Rouleaux 1+ 01/18/21 20:58: Sodium 131 L, Potassium 5.0, Chloride 103, Carbon Dioxide 13 L, Anion Gap 20.0 H, BUN 74 H, Creatinine 2.80 H, Estimated Creat Clear 33, Estimated GFR 17 L*, Est GFR ( Amer) 21 L D, Glucose 362 H, Calcium 6.0 L 01/19/21 01:24: POC Glucose 331 H* 01/19/21 05:24: POC Glucose 331 H* 01/19/21 05:32: WBC 27.7 H* D, RBC 4.35, Hgb 13.0, Hct 37.7, MCV 86.7, MCH 29.8, MCHC 34.4, RDW 14.5, Plt Count 320, MPV 7.4, Neut % (Auto) 91.6 H, Lymph % (Auto) 3.6 L, [place] % (Auto) 3.6, Eos % (Auto) 0.1, Baso % (Auto) 1.2, Neut # (Auto) 25.4 H, Lymph # (Auto) 1.0, [place] # (Auto) 1.0, Eos # (Auto) 0.0, Baso # (Auto) 0.3 H, Total Counted 100, Neutrophils % (Manual) 76, Band Neutrophils % 14.0 H, Lymphocytes % (Manual) 9 L, Monocytes % (Manual) 1 L, Platelet Estimate Normal, RBC Morphology Normal 01/19/21 05:32: Sodium 132 L, Potassium 5.2 H, Chloride 103, Carbon Dioxide 12 L, Anion Gap 22.2 H, BUN 75 H, Creatinine 2.60 H, Estimated Creat Clear 38, Estimated GFR 19 L*, Est GFR ( Amer) 22 L, Glucose 300 H, Calcium 5.2 L* D, Magnesium 1.6 D, Total Bilirubin 0.8, AST 61 H, ALT 17, Alkaline Phosphatase 140 H, Total Protein 5.6 L, Albumin 2.3 L, Globulin 3.3 H, Albumin/Globulin Ratio 0.7 L 01/19/21 06:00: Specimen Source Left radial, O2 % 100, ABG pH 7.24 L*, ABG pCO2 29.1 L, ABG pO2 162.3 H, ABG HCO3 12.1 L, ABG Total CO2 12.9 L, ABG O2 Saturation 99, ABG Base Excess -15.4 L, Shahid Test Acceptable, Vent Rate 35, Tidal Volume 480, PEEP 24 I & O for Last 24 hours: Intake & Output 01/16/21 01/17/21 01/18/21 01/19/21 23:59 23:59 23:59 23:59 Intake Total 3074 / 3074 5179 / 5179 4303 / 4303 952 / 952 Output Total 616 / 721 1148 / 1148 500 / 500 200 / 200 Balance 2458 / 2353 4031 / 4031 3803 / 3803 752 / 752 Weight 102 kg 103.022 kg 108.771 kg Microbiology Reports for the Last 24 Hours: Microbiology 01/15/21 16:12 Sputum - Expectorated Sputum Gram Stain - Final 01/15/21 16:12 Sputum - Expectorated Sputum Sputum Culture - Preliminary 01/18/21 14:05 Sputum - Endotracheal Tube Aspirate Gram Stain - Final Assessment and Plan (1) Respiratory failure with hypoxia Status: Acute Qualifiers: Chronicity: acute on chronic Qualified Code(s): J96.21 - Acute and chronic respiratory failure with hypoxia Category: Medical Code(s): J96.91 - Respiratory failure, unspecified with hypoxia (2) Pneumonia due to COVID-19 virus Status: Acute Category: Medical Code(s): U07.1 - COVID-19; J12.82 - Pneumonia due to coronavirus disease 2019 (3) Hypocalcemia Status: Acute Category: Medical Code(s): E83.51 - Hypocalcemia (4) Renal failure, acute Status: Acute Qualifiers: Acute renal failure type: unspecified Qualified Code(s): N17.9 - Acute kidney failure, unspecified Category: Medical Code(s): N17.9 - Acute kidne
[2021-01-19 14:03] LABS: POC Glucose,Bedside 303 (70-110)
[2021-01-19 14:03] LABS: POC Glucose,Bedside 279 (70-110)
[2021-01-19 14:03] LABS: POC Glucose,Bedside 86 (70-110)
--- NOTE | 2021-01-19 14:15 | PC.NURSE ---
pt bucking the vent and abd breathing noted. She is over breathing the vent by 2-3. Propofol gtt @ 100mcg/kg/min and Fentanyl gtt @ 200mcg/hr. Contacted Dr. Louis, who ordered Rocuronium 50mg IV x 1 dose (for ED MD to push) and a Versed gtt @ 0.02mg/kg/hr and to wean Propofol gtt once Versed gtt started. Called ED MD, who came to BS and pushed Rocuronium.
[2021-01-19 15:34] LABS: Chloride 103 mmol/L (98-107); Potassium 5.3 mmoL/L (3.5-5.1); Sodium 132 mmol/L (136-145)
[2021-01-19 15:37] LABS: Blood Urea Nitrogen 77 mg/dl (7-17); Creatinine Clearance Estimated 41 mL/min (50-200); Estimated Glomerular Filt Rate 20 ml/min (>60); GFR (African American) 25 ML/MIN (>60)
[2021-01-19 15:38] LABS: Anion Gap 24.3 mEq/L (5-15); Glucose 226 mg/dl (74-100)
[2021-01-19 15:42] LABS: Calcium 5.4 mg/dl (8.4-10.2); Carbon Dioxide 10 mmol/L (22.0-30.0)
[2021-01-19 16:26] LABS: POC Glucose,Bedside 232 (70-110)
[2021-01-19 19:59] LABS: POC Glucose,Bedside 195 (70-110)
[2021-01-19 22:06] LABS: POC Glucose,Bedside 179 (70-110)
[2021-01-20] VITALS (18 sets, daily range): BP systolic 82–110; BP diastolic 51–80; PULSE 73–100; RESP 35–36; TEMP 36–36.6; O2SAT 90–97; BMI 38.3
[2021-01-20 03:13] LABS: POC Glucose,Bedside 171 (70-110)
[2021-01-20 05:21] LABS: POC Glucose,Bedside 150 (70-110)
[2021-01-20 06:23] LABS: Anion Gap 25.9 mEq/L (5-15); Chloride 102 mmol/L (98-107); Creatinine Clearance Estimated 33 mL/min (50-200); Estimated Glomerular Filt Rate 16 ml/min (>60); GFR (African American) 19 ML/MIN (>60); Glucose 119 mg/dl (74-100); Potassium 5.9 mmoL/L (3.5-5.1); Sodium 132 mmol/L (136-145)
[2021-01-20 06:30] LABS: Blood Urea Nitrogen 82 mg/dl (7-17); Carbon Dioxide 10 mmol/L (22.0-30.0)
[2021-01-20 07:11] LABS: Calcium 4.8 mg/dl (8.4-10.2)
[2021-01-20 07:52] LABS: Allen's Test acceptable; Oxygen 100 %; PEEP 22; Tidal Volume 480; Vent Rate 35
[2021-01-20 07:53] LABS: Source Left Radial
[2021-01-20 08:05] LABS: Basophils # 0.7 K/mm3 (0-0.2); Basophils % 1.5 % (0.1-2.0); Hematocrit 42.7 % (37.0-47.0); Hemoglobin 14.1 g/dL (12.2-16.2); Lymphocytes % 4.4 % (10-50); Mean Corpuscular HGB Conc 32.9 g/dL (31.8-35.4); Mean Corpuscular Hemoglobin 29.3 pg (27.0-31.2); Mean Corpuscular Volume 88.8 fl (81-99); Mean Platelet Volume 8.7 fl (7.4-10.4); Monocytes # 1.7 K/mm3 (0.1-1.0); Monocytes % 3.7 % (1.7-9.3); Neutrophils # 41.3 K/mm3 (1.8-7.8); Neutrophils % 90.4 % (37.0-80.0); Platelet Count 394 K/mm3 (142-424); Red Blood Count 4.81 M/mm3 (4.20-5.40)
[2021-01-20 08:10] LABS: White Blood Count 45.7 K/mm3 (4.8-10.8)
--- NOTE | 2021-01-20 08:10 | PC.NURSE ---
received call from lab ([facility]) with critical results: WBC 45.7. Name and verified. Dr. Martinez and Dr. Louis notified.
[2021-01-20 08:11] LABS: MANUAL DIFFERENTIAL MANUAL DIFFERENTIAL (MANUAL DIFF)
[2021-01-20 08:24] LABS: ABG PCO2 28.1 mmhg (35.0-45.0); ABG PH 7.06 mmol/L (7.35-7.45)
[2021-01-20 08:25] LABS: ABG Base Excess -21.3 mmol/L (-2.4-2.3); ABG Oxygen Saturation 97 % (90-100); ABG PO2 113.7 mmhg (80-100)
--- NOTE | 2021-01-20 08:45 | XR_ITS ---
PROCEDURE INFORMATION: Exam: XR Chest Exam date and time: 01/20/2021 8:45 AM Age: 65 years old Clinical indication: Device placement; Ett placement (vent status); Additional info: Intubation TECHNIQUE: Imaging protocol: XR of the chest. Views: 1 view. COMPARISON: CR XR CHEST PORTABLE 01/18/2021 8:35 PM FINDINGS: Tubes, catheters and devices: Endotracheal tube remains in place with the tip above the aaron. Nasogastric tube remains in place. Lungs: There has been early improvement in the extensive bilateral airspace disease. Pleural spaces: Unremarkable. No pleural effusion. No pneumothorax. Heart/Mediastinum: Unremarkable. No cardiomegaly. Bones/joints: Unremarkable. IMPRESSION: There has been early improvement in the extensive bilateral airspace disease.
[2021-01-20 08:51] LABS: Vancomycin,Trough 19.3 ug/mL (5.0-10.0)
--- NOTE | 2021-01-20 08:55 | HMH.ACPN2 ---
Internal Medicine - PN: Subj *Date: 01/20/21 *Time: 08:55 Interval history: Overnight patient has decompensated with worsening acidosis, decreasing bicarb, and increasing swelling. Her blood pressure is also been extremely low, even on current pressor agents. Respiratory mechanics seem about the same, PaO2 remains above 100. Patient remains paralyzed, intubated and sedated in the intensive care unit. Exam Vital signs and Labs for Last 24 Hours: Temp Pulse Resp BP Pulse Ox 97.2 F L 82 35 H 100/52 L 95 01/20/21 06:52 01/20/21 06:52 01/20/21 06:52 01/20/21 06:52 01/20/21 06:52 Laboratory Results - last 24 hr 01/19/21 06:00: Specimen Source Left radial, O2 % 100, ABG pH 7.24 L*, ABG pCO2 29.1 L, ABG pO2 162.3 H, ABG HCO3 12.1 L, ABG Total CO2 12.9 L, ABG O2 Saturation 99, ABG Base Excess -15.4 L, Shahid Test Acceptable, Vent Rate 35, Tidal Volume 480, PEEP 24 01/19/21 10:36: POC Glucose 86 01/19/21 10:50: POC Glucose 303 H* 01/19/21 12:07: POC Glucose 279 H 01/19/21 15:15: Sodium 132 L, Potassium 5.3 H, Chloride 103, Carbon Dioxide 10 L D, Anion Gap 24.3 H, BUN 77 H, Creatinine 2.40 H, Estimated Creat Clear 41, Estimated GFR 20 L, Est GFR ( Amer) 25 L, Glucose 226 H D, Calcium 5.4 L 01/19/21 16:16: POC Glucose 232 H 01/19/21 19:48: POC Glucose 195 H 01/19/21 21:56: POC Glucose 179 H 01/20/21 02:00: POC Glucose 171 H 01/20/21 04:13: POC Glucose 150 H 01/20/21 05:00: Vancomycin Trough 19.3 H 01/20/21 05:00: Sodium 132 L, Potassium 5.9 H, Chloride 102, Carbon Dioxide 10 L, Anion Gap 25.9 H, BUN 82 H, Creatinine 3.00 H D, Estimated Creat Clear 33, Estimated GFR 16 L*, Est GFR ( Amer) 19 L* D, Glucose 119 H D, Calcium 4.8 L* D 01/20/21 05:00: WBC 45.7 H* D, RBC 4.81, Hgb 14.1, Hct 42.7, MCV 88.8, MCH 29.3, MCHC 32.9, RDW 15.0, Plt Count 394, MPV 8.7, Neut % (Auto) 90.4 H, Lymph % (Auto) 4.4 L, [place] % (Auto) 3.7, Eos % (Auto) 0.0 L, Baso % (Auto) 1.5, Neut # (Auto) 41.3 H, Lymph # (Auto) 2.0, [place] # (Auto) 1.7 H, Eos # (Auto) 0.0, Baso # (Auto) 0.7 H 01/20/21 06:00: Specimen Source Left radial, O2 % 100, ABG pH 7.06 L*, ABG pCO2 28.1 L, ABG pO2 113.7 H, ABG HCO3 8.0 L, ABG Total CO2 9.0 L, ABG O2 Saturation 97, ABG Base Excess -21.3 L, Shahid Test acceptable, Vent Rate 35, Tidal Volume 480, PEEP 22 I & O for Last 24 hours: Intake & Output 01/17/21 01/18/21 01/19/21 01/20/21 11:59 11:59 11:59 11:59 Intake Total 6164 / 6410 3858 / 3858 3366 / 3366 2444 / 2444 Output Total 1299 / 1424 665 / 665 575 / 575 117 / 117 Balance 4865 / 4986 3193 / 3193 2791 / 2791 2327 / 2327 Weight 227 lb 2 oz 239 lb 12.8 oz 244 lb 7.882 oz Microbiology Reports for the Last 24 Hours: Microbiology 01/15/21 16:12 Sputum - Expectorated Sputum Gram Stain - Final 01/15/21 16:12 Sputum - Expectorated Sputum Sputum Culture - Final Normal Respiratory Lakesha Narrative: Patient is intubated, paralyzed and sedated. ENT exam shows puffiness, fluid retention above her neck. Fluid status in arms and legs is also edematous. Abdomen is soft. Vallejo catheter draining yellow urine. Lungs have rhonchi, symmetric air entry. Heart rate regular. Difficult exam because of obesity. Assessment and Plan (1) Respiratory failure with hypoxia Status: Acute Qualifiers: Chronicity: acute on chronic Qualified Code(s): J96.21 - Acute and chronic respiratory failure with hypoxia Category: Medical Code(s): J96.91 - Respiratory failure, unspecified with hypoxia (2) Pneumonia due to COVID-19 virus Status: Acute Category: Medical Code(s): U07.1 - COVID-19; J12.82 - Pneumonia due to coronavirus disease 2019 (3) Hypocalcemia Status: Acute Category: Medical Code(s): E83.51 - Hypocalcemia (4) Renal failure, acute Status: Acute Qualifiers: Acute renal failure type: unspecified Qualified Code(s): N17.9 - Acute kidney failure, unspecified Category: Medical Code(s): N17.9
--- NOTE | 2021-01-20 09:08 | XR_ITS ---
PROCEDURE INFORMATION: Exam: XR Abdomen Exam date and time: 01/20/2021 9:08 AM Age: 65 years old Clinical indication: Abnormal findings; Abnormal lab test; Abnormal kidney function lab tests; Additional info: Pain TECHNIQUE: Imaging protocol: XR of the abdomen. Views: Frontal supine view of the abdomen. 1 View. COMPARISON: ABDPELW/O CT ABD PELVIS W/O CONTRAST 03/18/2014 2:24 PM FINDINGS: Tubes, catheters and devices: Right femoral line is in place. Gastrointestinal tract: Normal. No bowel dilation. Bones/joints: Unremarkable. IMPRESSION: No acute findings.
[2021-01-20 09:15] LABS: Burr Cells 2+; Lymphocytes % 9 % (10-50); Monocytes % 18 % (2-9); Neutrophils % 73 % (42-76); Platelet Estimate Normal; Poikilocytosis 2+; Total Cells Counted 100
--- NOTE | 2021-01-20 15:53 | P.PN_ITS ---
Critical Care Event Note Code activated: Yes Narrative: This case had a high probability of a clinically significant, sudden, or life threatening deterioration of this patient's condition which required my full and direct attention, intervention and personal management. Called to [facility]. Upon my arrival it is reported that the patient developed bradycardia then asystole and CPR was started. She was received 2 doses of epinephrine prior to my arrival. Rhythm remains asystole. Multiple doses of epinephrine administered. it was reported the patient has renal failure and had a potassium of 5.9 this morning. She was given calcium and bicarbonate. Despite all this she remained in asystole. Resuscitative efforts were stopped. However then the patient developed an agonal rhythm with a pulse and resuscitative measures were reinstituted. Multiple doses of epinephrine again administered along with CPR. Patient alternated between asystole and agonal rhythm but eventually remained in asystole and was pronounced . Critical care time: less than 30 mins [facility] Critical Care Exam Vital signs: Temp Pulse Resp BP Pulse Ox 97.2 F L 75 35 H 100/52 L 96 01/20/21 06:52 01/20/21 11:08 01/20/21 11:08 01/20/21 06:52 01/20/21 11:08
--- NOTE | 2021-01-20 15:56 | HMH.DEATH ---
Pronouncement Note - Date and Time of Date of : 01/20/21 Time of : 14:49 - PCOD Preliminary cause of : Acute respiratory failure - Additional Data Confirmation of : no pulse, no respirations, no heart sounds, pupils fixed and dilated Family: at bedside Attending physician: Jordan Rincon MD
--- NOTE | 2021-01-20 17:10 | PC.NURSE ---
1420: code blue called and 1mg Epi given 1421: 1mg Epi given. 1422: Ca 1g and Bicarb given 1424: 1mg Epi given 1425: pulse check. Asytole 1426: 1mg Epi given 1427: TOD pronounced by Dr. Garcia 1433: upon walking out of the room, Vfib noticed on tele and pt shocked @ 220 marie. 1436: 1mg Epi given 1439: 1mg Epi given. Pulse check. Asystole 1443: 1mg Epi given 1445: pulse check. Asystole 1449: TOD pronounced by Dr. Garcia Family members @ BS after TOD pronounced. Pt to be released to [facility] in [place], [place]. GONZALO contacted (Sanam). Pt ruled out for donation. Dr. Martinez and Dr. Louis updated
--- NOTE | 2021-01-21 08:54 | [facility].DEADDC ---
Discharge Sum: Prov - Provider Primary care physician: Jer Martinez MD Visit Care Team Role Provider Type Jer Martinez MD Primary Care Provider Staff Physician Yarelis Louis MD Other Providers Staff Physician Anlai Esquivel MD Emergency Provider ER Physician Jordan Rincon MD Admit Provider Staff Physician Attending Provider Admitting clinician: Jordan Rincon Attending physician on admission: Jordan Rincon Consults: 01/17/21 07:51 Nutrition Consult [CONS] Routine Comment: Reason for Nutrition Consult: Tube Feeding, Initiate 01/18/21 09:21 Consult to Pulmonology [CONS] Routine Consulting Provider: Yarelis Louis Reason For Consult: critical care and ventilator management Pronouncing clinician: Nomi Boonelakshmi Discharge Sum: Summary - Date and Time Date of admission: 01/15/21 14:06 Date of : 01/20/21 Time of : 14:49 - Hospital Course prior to Hospital Course Information: Patient was admitted with positive Covid testing and hypoxia. Her x-ray confirmed the findings of multi lobar viral pneumonia. Patient is unvaccinated. Patient has significant risk factors for mortality and morbidity with COVID-19 infection and did not improve at all during her hospital stay. She transitioned from nasal cannula oxygen to Vapotherm and was transitioned into the intensive care unit and intubated. She progressively declined with acute kidney injury into her acute renal failure, and also began to exhibit significant signs of multiorgan failure with severe respiratory failure, chronic desaturation and bradycardia with heart failure. In spite of her multiple risk factors and dismal prognosis her family wished her to be maintained is a full code and this was done. Pulmonary consultation was obtained for ventilatory management and aggressive COVID-19 medications including remdesivir, steroids and antibody therapies were given. Unfortunately, in spite of these aggressive therapies and aggressive ventilatory management, sedation and paralyzation patient's status continued to decline in a stepwise fashion and she after a lengthy ACLS protocol driven event yesterday afternoon at the date and time mentioned above. - Summary Details: See ER pronouncement note and ACLS summary. - Additional Data Confirmation of as documented by pronouncing clinician: no pulse Family: at bedside Attending/PCP notified?: Yes Attending physician: Jordan Rincon MD Was code activated?: Yes Autopsy requested?: No land title examiner notified?: No Organ bank notified?: Yes Advance directives: No Hospice patient?: No
[2021-01-21 16:50] LABS: POC Glucose,Bedside 82 (70-110)
[2021-01-21 16:50] LABS: POC Glucose,Bedside 134 (70-110)
== END 2021-01-20 19:10 | disposition expired | DRG 208 ==
LOC: ER 12:03 → 2ND 13:45 → ICU 01-16 09:56
PROVIDERS: Internal Medicine Pulmonary Disease; Admitting Provider Internal Medicine Adolescent Medicine; Emergency Provider Emergency Medicine; PCP Internal Medicine Adolescent Medicine; Visit Provider Internal Medicine Adolescent Medicine
DX: U07.1 COVID-19 (principal); J12.82 Pneumonia due to coronavirus disease 2019; J96.01 Acute respiratory failure with hypoxia; N17.9 Acute kidney failure, unspecified; E03.9 Hypothyroidism, unspecified; E78.5 Hyperlipidemia, unspecified; I10 Essential (primary) hypertension; M19.90 Unspecified osteoarthritis, unspecified site; R00.1 Bradycardia, unspecified
CPT/HCPCS: 31500; 94002; 36569; 36415; 71045; 71046; 74018; 80048; 80053; 80202; 81001; 82330; 82803; 82962; 83735; 85007; 85025; 85610; 85730; 87040; 87070; 87205; 93005; 93970; 94003; 94640; 94660; 94761; 95819; 96365; 99283; 99284; C1751; J1956; J2704; J3370; U0003